=== PATIENT | male | born 1935 | race Caucasian/White ===

== ENCOUNTER 2019-10-02 21:33 | Observation (INO) | payer BC, MEDICARE, SELFPAY ==
[2019-10-02 21:49] VITALS: BP 92/70; PULSE 104; RESP 18; TEMP 36.7; O2SAT 95
--- NOTE | 2019-10-02 22:14 | ED.GENADUL_ITS ---
Discharge Plan Disposition Patient Disposition: [facility] INPATIENT Condition: Good Discharge Details Chief Complaint: Urinary Clinical Impression: Postoperative urinary retention, Obstructive uropathy, Acute kidney injury Admit Date/Time: 10/03/19 01:31 Admit Provider: Juan A Bryan Attending Provider: Juan A Bryan Primary Care Provider: Jason Muñoz ED Provider: Hasmukh Pate Hospital Course Hospital Course: 84 yo male with a h/o BPH, GERD, lumbar DJD, appx 2 weeks s/p L2-L5 laminectomy at [facility]. He had a jurado catheter placed in the shimon-operative period then removed at [facility] on 09/27. He was able to urinate post-jurado and was taking Flomax. He subsequently had had decreased urine output for the last several days. He also endorses constipation. He has been taking alesia/docusate and bisacodyl. After an enema on the day of admission he started having watery, brown stools. No F/C, SOA/cough, N/V/abd pain. Dr. Schroeder placed a jurado catheter on admission, with relief of urine. His creatinine is trending to normal. He is feeling well. Tolerating a diet. He is being discharged home. He will need to follow up with Dr. Schroeder in one week. Continue Tamsulosin at 0.8 mg daily. Repeat BMP in 3 days. Follow up with PCP as needed. Discharge Instructions Instructions: Constipation (DC), Acute Kidney Injury (DC), Urinary Retention in Men (GEN) Additional Instructions: Follow up with Dr. Schroeder in one week Take mirlax twice a day, Your tamsulosin dose has increased to 0.8 mg daily take every day Repeat lab work in 3 days Forms: Nursing Discharge Form Referrals: Laine Arceo DNP [NURSE PRACTITIONER] - 10/12/19 8:30 am Discharge Data Discharge Date/Time-TO BE ENTERED AT DEPARTURE: 10/03/19 02:10 Medical Decision Making <Lennie Almanza DO - Last Filed: 10/05/19 13:40> 2200 -- 84-year-old male who is 2 weeks status post lumbar laminectomy followed by Jurado catheter placement and removal 4 days ago presents for urinary retention worsening today. He also complains of constipation that was relieved today with enema now with diarrhea. BP mildly hypotensive. Heart rate 100s. He is afebrile and appears nontoxic. He has lower abdominal/suprapubic pressure. Normal exam. Normal sensation to perineum. No focal deficits. Differential diagnosis includes prerenal, renal or postrenal cause, UTI, mass. Will place an IV, bolus IV fluids, screening labs, CT abdomen and pelvis. Bladder scan approximately 1000mL. Will place a Jurado catheter. 2330 -- Labs reviewed and note a normal white blood cell count with significant abnormal renal function with a creatinine of 2.64 and GFR of 23. Nurse attempted to place Jurado catheter at bedside and it appeared to glide in easily but with no urine output. Concern for separate tract. 12am -- Case endorsed to Dr. Pate to follow-up on labs and imaging and with urology. Medical Records Medical records reviewed: Yes I reviewed the patient's medical records. Lab Data Lab results reviewed: Yes I reviewed the patient's lab results. <Hasmukh Pate, DO - Last Filed: 10/03/19 01:58> 84-year-old male who was signed out to me by my colleague Dr. Lennie Almanza. Please refer to her history and physical, documentation and assessment and plan. At time of signout we are pending evaluation by urology. CT scan results had returned and demonstrate evidence of notably dilated bladder at 1400 cc, markedly enlarged prostate at 8 cm, a 3 x 1.8 cm hypodense focus in the rightward seminal vesicle is nonspecific, hydronephrosis. We did contact Dr. Schroeder and discussed the case with him, he feels that the patient likely developed a secondary tract secondary to multiple catheterizations previously at [facility]. He has come in, and did place a Jurado catheter and the patient successfully got out 1600 cc of urine. Patient feels much better. Patient's laboratory work-up is reassuring with no white count, significant left shift or bandemia. Patient does have a notably elevated creatinine at 2.60, and review of labs from [facility] just 2 months ago demonstrated normal creatinine at that time. Likely secondary to obstructive uropathy. Pending urinalysis at this time, however urine on evaluation is otherwise clear but slightly dark. Due to the patient's age, and notable amount of urine that was exuded, I do feel that he would benefit from overnight admission for monitoring for signs of post obstructive diuresis. Additionally I do think with his age and comorbidities would be beneficial for his admission to make sure his creatinine improves. I did contact the hospitalist Dr. Bryan, and discussed the case with him. He agrees with the assessment and plan. I will place admission orders on his behalf for the patient. I have extensively reviewed the treatment plan with the patient. I have addressed all patient concerns at this time. I have also discussed the plan with the admitting physician and they agree with the current assessment and plan and have agreed to assume responsibility for the patient. All parties demonstrate verbal understanding and agreement with our assessment and plan at this time. Urinalysis is negative for evidence of infection. IMPRESSION: 1. Dilated urinary bladder, bladder volume 1460 mL, concerning for bladder outlet obstruction. 2. Markedly enlarged prostate measuring up to 8 cm, with elevation of the bladder floor. Correlate with PSA. 3. 3 x 1.8 cm hypodense focus in the rightward seminal vesicle is nonspecific in nature. This may represent cystic expansion related to obstruction of the ejaculatory ducts. Possibility of abscess is not excluded. Postcontrast CT may be helpful to exclude peripheral enhancement suggestive of abscess. 4. Large hiatal hernia. 5. Moderate bilateral hydronephrosis, left greater than right, likely representing postobstructive hydronephrosis. 6. There is air in the posterior urinary bladder wall and a small amount of air in the bladder lumen. This might relate to attempts at catheterization. There is no evidence of mason bladder perforation. Clinical correlation is recommended to exclude evidence of infection, to exclude emphysematous cystitis. 7. There is a urinary catheter in the distal penile urethra. The balloon is not inflated. 8. Nonobstructive right renal stones. No ureteral stones. 9. Additional incidental findings detailed above. Dictated and Authenticated by: Akin Albright MD. Ordering:DIANE Hogue MD HPI <Lennie Almanza DO - Last Filed: 10/05/19 13:40> General Mode of arrival: ambulatory . Date/Time Provider Initiated Documentation: 10/02/19 21:56 . Limitations to Documentation: no limitations . Information obtained by: patient . HPI Narrative: Patient is a an 84-year-old male who had lumbar laminectomy L2-L5 at [facility] within the last 2 weeks in which he had a Jurado catheter placed which he states was removed at [facility] on 09/27. He states he was able to urinate on his own after removal and has been taking Flomax. He states over the last few days he has had decreased urination as well as constipation. He did an enema today and has had multiple episodes of watery brown diarrhea since then. He states over the past 2 hours he has been unable to urinate at all and is having increased bladder pressure. He denies any fever, chest pain, shortness of breath, nausea or vomiting. Patient states it took [address] the catheter at [facility] and that they met resistance with bleeding before eventually being able to place a catheter. Related Data Home Medications Medication Instructions Recorded Confirmed bisacodyl 10 mg PO BID PRN 10/02/19 10/02/19 sennosides-docusate sodium [Stool 2 tab PO BID PRN 10/02/19 10/02/19 Softener-Laxative] polyethylene glycol 3350 17 g PO DAILY #30 ea 10/03/19 tamsulosin 0.8 mg PO DAILY #30 cap 10/03/19 Previous Rx's Medication Instructions Recorded polyethylene glycol 3350 17 g PO DAILY #30 ea 10/03/19 tamsulosin 0.8 mg PO DAILY #30 cap 10/03/19 Allergies Allergy/AdvReac Type Severity Reaction Status Date / Time codeine Allergy Mild Nausea Unverified 10/02/19 21:53 latex Allergy Mild Skin Rash Unverified 10/02/19 21:53 General Stated Complaint: Urinary GURU: 3 Review of Systems <Lennie Almanza DO - Last Filed: 10/05/19 13:40> All systems reviewed & are unremarkable except as noted in HPI and below Constitutional Constitutional: Reports as per HPI, Denies chills and Denies fever(s) Eyes Eyes: Denies blurry vision ENT Ears, Nose, Mouth, and Throat: Denies dizziness, Denies sore throat and Denies throat swelling Cardiovascular Cardiovascular: Denies chest pain and Denies dyspnea Respiratory Respiratory: Denies cough and Denies dyspnea Gastrointestinal Gastrointestinal: Reports abdominal pain, Reports constipation, Reports diarrhea and Denies vomiting Genitourinary Genitourinary: Denies hematuria, Reports oliguria, Reports difficulty urinating and Denies dysuria Musculoskeletal Musculoskeletal: Denies back pain and Denies numbness Integumentary/Breasts Skin/Breast: Denies lesions and Denies rash Neurologic Neurologic: Denies dizziness, Denies localized weakness and Denies numbness Allergic/Immunologic Allergic/Immunologic: Denies throat swelling PFSH <Lennie Almanza DO - Last Filed: 10/05/19 13:40> Medical History BPH (benign prostatic hyperplasia) (Chronic) GERD (gastroesophageal reflux disease) (Chronic) Postoperative urinary retention (Acute) Surgical History History of hernia repair (Chronic) History of laminectomy (Acute) History of tonsillectomy (Chronic) Social History Smoking/Tobacco Use Status: Never Alcohol Intake: never Drug use: Never Do you feel safe at home: Yes Do you feel safe in your relationship?: Yes Exam <Lennie Almanza DO - Last Filed: 10/05/19 13:40> Const General: cooperative and no acute distress HENMT Head: normal to inspection Face and sinus: normal facial exam Eyes General: appearance normal, both eyes and all related structures EOM: EOM intact bilaterally Neck Neck: normal visual inspection and No submandibular swelling Lymphatic: no lymphadenopathy noted Chest Chest: normal inspection of the chest and no tenderness Resp Effort & Inspection: normal respiratory effort and able to speak in complete sentences Auscultation: clear to auscultation bilaterally Cardio Rate: regular rate Rhythm: regular rhythm GI Inspection: normal to inspection Palpation: soft, not firm, not rigid and tender suprapubicly Auscultation: normal bowel sounds Male General Exam: Yes normal external exam Scrotum: scrotum normal Testes: normal Back/Spine/Pelvis Thoracic/Lumbar Spine: thoracic and lumbar spine normal to inspection Pelvis: no pain with anterior-posterior compression Skin General skin exam: no rashes or lesions noted Neuro General: patient alert, patient awake and patient oriented x3 Cognition: normal cognition Speech: speech normal Motor: muscle tone normal throughout Sensory Exam: no sensory deficits noted Extrem General: normal to inspection, full ROM, capillary refill normal, no calf tenderness bilaterally and no edema Psych Appearance: grossly normal Mental Status: mental status grossly normal Speech and Movement: speech and movement normal Affect: normal affect Course <Lennie Almanza DO - Last Filed: 10/05/19 13:40> Vital Signs Vital signs: Vital Signs Temperature 98.1 F 10/02/19 21:49 Pulse 104 H 10/02/19 21:49 Respiratory Rate 18 10/02/19 21:49 Blood Pressure 92/70 L 10/02/19 21:49 Pulse Oximetry 95 10/02/19 21:49 Temperature 98.1 F 10/02/19 21:49 Temperature Source Skin 10/02/19 21:49 Pulse 104 H 10/02/19 21:49 Respiratory Rate 18 10/02/19 21:49 Respiratory Effort Non-Labored 10/02/19 21:55 Blood Pressure 92/70 L 10/02/19 21:49 Blood Pressure Position Sitting 10/02/19 21:49 Pulse Oximetry 95 10/02/19 21:49 Oxygen Delivery Method Room Air 10/02/19 21:49 Oxygen Flow Rate 0 10/02/19 21:49 Pain Level 6 10/02/19 21:55 Sign Out <Lennie Almanza DO - Last Filed: 10/05/19 13:40> Sign Out Data: Sign Out Comment: Follow-up on labs, urinalysis, imaging and final disposition. Patient needs Jurado catheter placement. Last updated by Lennie Almanza DO at 10/02/19 23:28
[2019-10-02 22:36] LABS: Abs Immature Grans 0.02 10^3/uL (0.0-0.06); Absolute Basophil Count 0.03 10^3/uL (0.0-0.2); Absolute Eosinophil Count 0.16 10^3/uL (0.0-0.7); Absolute Lymphocyte Count 1.01 10^3/uL (1.2-3.4); Absolute Monocyte Count 1.34 10^3/uL (0.1-0.8); Basophils % 0.3; Eosinophils % 1.7; HCT 41.2 % (40.0-50.0); HGB 13.4 g/dL (13.5-17.5); Immature Grans % 0.2; Lymphocytes % 10.8; MCH 30.2 pg (27.0-33.0); MCHC 32.5 % (32.0-36.0); MPV 9.1 fL (8.0-11.0); Monocytes % 14.3; Neutrophils % 72.7; Nucleated RBC 0 %; Platelet Count 213 10^3/uL (130-400); RBC 4.43 10^6/uL (4.36-5.78); RDW 12.6 % (11.8-14.1); RDW-SD 43.2 fL; WBC 9.36 10^3/uL (4.4-10.8)
[2019-10-02 22:49] LABS: ALT 30 U/L (16-63); AST 33 U/L (15-37); Albumin 3.7 g/dL (3.4-5.0); Alkaline Phosphatase 77 U/L (46-116); Anion Gap 14.2 mmol/L (3-11); BUN 27 mg/dL (7-18); Bilirubin, Total 0.9 mg/dL (0.2-1.0); CO2 21.8 mmol/L (21.0-32.0); CREATININE 2.64 mg/dL (0.70-1.30); Calcium 9.9 mg/dL (8.5-10.1); Chloride 104 mmol/L (98-107); Estimated GFR 23.34 (mL/min/1.73m2); Glucose 120 mg/dL (74-106); Potassium 3.9 mmol/L (3.5-5.1); Sodium 140 mmol/L (136-145)
--- NOTE | 2019-10-02 23:45 | DI.CT_ITS ---
EXAM: CT ABDOMEN PELVIS WO CLINICAL HISTORY: constipation then diarrhea, urinary retention TECHNIQUE: COMPARISON: No exams were available for comparison FINDINGS: Noncontrast CT examination of the abdomen and pelvis was performed. Images obtained through the lung bases are unremarkable. There is a large hiatal hernia. Prior lumbar spine surgery noted with an a pparent laminectomy. Numerous osseous chips noted at the surgical site. Correlate with any symptoma tology referable to this area. There are multiple hepatic and splenic calcifications consistent with healed granulomatous disease. Nonspecific multiple tiny low-attenuation hepatic lesions noted, these may represent cysts or hemangi anne, no prior studies available for comparison, these are too small to characterize accurately. There is a mass of left renal cyst with wall calcification. There is moderate left hydronephrosis an d right hydronephrosis. There are nonobstructing right renal calculi. No ureteral calcification see n. There is massive distention of the urinary bladder, there is gas in the bladder lumen, catheter noted in penile urethra. Posterior urinary bladder wall gas noted, emphysematous cystitis not excluded. Marked heterogeneous enlargement of the prostate noted. No gross abdominal or pelvic adenopathy. Fat containing left inguinal hernia noted. Appendix is not specifically identified but there is no evidence of appendicitis or diverticulitis. No evidence of bowel obstruction. Abdominal aorta is of normal diameter. IMPRESSION: Bilateral hydronephrosis with massive urinary bladder distension, consistent with bladder outlet obst ruction. Gas noted in urinary bladder wall, emphysematous cystitis not excluded, please correlate cl inically. RADIATION DOSE DELIVERED: 1,162.29mGy.cm Total DLP
--- NOTE | 2019-10-03 00:17 | DI.VRAD_ITS ---
PROCEDURE INFORMATION: Exam: CT Abdomen And Pelvis Without Contrast Exam date and time: 10/02/2019 10:58 PM Age: 84 years old Clinical indication: Generalized; Patient HX: Abdominal pain, unable to urinate, TECHNIQUE: Imaging protocol: Computed tomography of the abdomen and pelvis without contrast. Radiation optimization: All CT scans at this facility use at least one of these dose optimization techniques: automated exposure control; mA and/or kV adjustment per patient size (includes targeted exams where dose is matched to clinical indication); or iterative reconstruction. COMPARISON: No relevant prior studies available. FINDINGS: Lungs: Patchy scarring or atelectasis in the lung bases. Heart: Heart size normal. Mediastinal space: Large hiatal hernia. This contains the majority of the stomach, with no gross signs of obstruction. Liver: Normal size and contour. Well-circumscribed low-density lesions in the right hepatic lobe measuring 6 mm, 6 mm, and 7 mm , demonstrating benign CT features consistent with hepatic cysts. No further imaging characterization/followup is required based on current consensus criteria. No intrahepatic biliary ductal dilatation. Granulomatous calcifications in the liver. Gallbladder and bile ducts: Normal. No calcified stones. No ductal dilation. Pancreas: Mild pancreatic atrophy without acute abnormality. No pancreatic ductal dilatation. Spleen: Granulomatous calcifications in the spleen without acute splenic abnormality. Adrenals: Normal. No adrenal mass. Kidneys and ureters: Mild bilateral hydronephrosis. No obstructive ureteral stones or mass lesions are identified, favoring that this represents postobstructive hydronephrosis related to bladder overdistention. There are 2 small nonobstructive stones in the right kidney measuring 3 mm and 4 mm. 15 cm left renal cortical cyst with some thin rim calcification medially. There are also a few small subcentimeter probable cortical cysts in the right kidney. No further imaging evaluation is required. Stomach and bowel: The small bowel is normal with no evidence of obstruction. Moderate colonic diverticulosis distributed throughout the colon without focal changes to suggest diverticulitis. Appendix: The appendix is normal in caliber and demonstrates no evidence of appendicitis. Intraperitoneal space: No free fluid or air. Vasculature: Mild atherosclerotic aortoiliac calcification without aneurysm. Lymph nodes: No adenopathy. Bladder: Dilated urinary bladder, bladder volume 1460 mL. Given the markedly enlarged prostate is is suggestive of bladder outlet obstruction. There is a small amount of air in the urinary bladder which may relate to recent catheterization. There is no bladder wall thickening or adjacent stranding to suggest cystitis. Small amounts of air are present in the posterior bladder wall. Etiology is uncertain. Correlate with UA to exclude evidence of emphysematous cystitis. Reproductive: Markedly enlarged prostate partially elevating the bladder floor and measuring 8 cm transverse by 7 cm AP by approximately 5.2 cm craniocaudal. Correlate with PSA to exclude evidence of prostate carcinoma. 3 x 1.8 cm hypodense rounded focus in the right seminal vesicle measuring 5 Hounsfield units in density, possibly a cyst. Abscess could produce this appearance, consider postcontrast CT assessment as clinically indicated. There is a catheter in the penile urethra. The balloon is not inflated. Bones/joints: No acute osseous abnormalities. Prior laminectomy T12-L5. Osteopenia. Soft tissues: Small fatty left inguinal hernia with no asociated bowel herniation or bowel obstruction. IMPRESSION: 1. Dilated urinary bladder, bladder volume 1460 mL, concerning for bladder outlet obstruction. 2. Markedly enlarged prostate measuring up to 8 cm, with elevation of the bladder floor. Correlate with PSA. 3. 3 x 1.8 cm hypodense focus in the rightward seminal vesicle is nonspecific in nature. This may represent cystic expansion related to obstruction of the ejaculatory ducts. Possibility of abscess is not excluded. Postcontrast CT may be helpful to exclude peripheral enhancement suggestive of abscess. 4. Large hiatal hernia. 5. Moderate bilateral hydronephrosis, left greater than right, likely representing postobstructive hydronephrosis. 6. There is air in the posterior urinary bladder wall and a small amount of air in the bladder lumen. This might relate to attempts at catheterization. There is no evidence of mason bladder perforation. Clinical correlation is recommended to exclude evidence of infection, to exclude emphysematous cystitis. 7. There is a urinary catheter in the distal penile urethra. The balloon is not inflated. 8. Nonobstructive right renal stones. No ureteral stones. 9. Additional incidental findings detailed above. Dictated and Authenticated by: Akin Albright MD. Ordering:DIANE Hogue MD
[2019-10-03] MEDS: ACETAMINOPHEN 1,000 MG/100 ML BTL 400 MG IVPB (00:40)
[2019-10-03] MEDS: Normal Saline 500 ML IV (00:55)
--- NOTE | 2019-10-03 01:24 | W.UROLOGYCON ---
Date of service: 10/03/19 Time of Service: 01:24 Assessment and Plan Assessment and plan (1) Postoperative urinary retention: Status: Acute Assessment and plan: I would maximize his dose of Flomax to 0.8 mg daily. We will plan on leaving his catheter in place for a minimum of a week. We may leave the catheter for longer if he has persistent constipation or difficulty ambulating. I would expect that his serum creatinine will improve rather quickly now that his bladder has been drained. History of Present Illness History of Present Illness Chief Complaint: Urinary retention Narrative: This is an 84-year-old gentleman who underwent back surgery at [facility] about 2 weeks ago. He apparently developed urinary retention while he was hospitalized. He recalls that a urology resident and attending needed to use a wire to pass a catheter during this hospitalization. He was started on Flomax 0.4 mg daily. The catheter was removed 5 days ago. He had a slow stream but was able to void until this evening when he became distended and uncomfortable. When he presented to the emergency room, his serum creatinine was elevated. The staff was unable to pass a catheter into his bladder, and I was called to help with bladder drainage. The point of obstruction seems to be at the bladder neck. The patient tells me he has been constipated in the postoperative period and required an enema just this morning. He has been able to ambulate since the procedure. [facility] Medical History BPH (benign prostatic hyperplasia) (Chronic) GERD (gastroesophageal reflux disease) (Chronic) Postoperative urinary retention (Acute) Surgical History History of hernia repair (Chronic) History of laminectomy (Acute) History of tonsillectomy (Chronic) Social History Smoking/Tobacco Use Status: Never Alcohol Intake: never Drug use: Never Do you feel safe at home: Yes Do you feel safe in your relationship?: Yes Exam Narrative Exam Narrative: The patient was seen at the bedside. He is relatively comfortable after having been medicated. His vital signs are documented elsewhere His bladder is distended. He is awake and alert His genitalia was prepped. 2% Xylocaine jelly was instilled into the urethra to act as a local anesthetic. A 20 Tamazight coud? tipped catheter was passed through the urethra into the bladder. Clear urine was obtained. The catheter balloon was inflated with 10 cc of sterile water and hooked to gravity drainage. Approximately 1700 cc clear urine was obtained. Results Last Vital Signs Temp 36.7 C 10/02/19 21:49 Pulse 104 H 10/02/19 21:49 Resp 18 10/02/19 21:49 BP 92/70 L 10/02/19 21:49 Pulse Ox 95 10/02/19 21:49 Labs Result diagrams: 10/02/19 22:28 10/02/19 22:28 Labs: Laboratory Results - last 24 hr 10/02/19 10/02/19 22:28 22:28 WBC 9.36 RBC 4.43 Hgb 13.4 L Hct 41.2 MCV 93.0 MCH 30.2 MCHC 32.5 RDW 12.6 Plt Count 213 MPV 9.1 Immature Gran % 0.2 Neutrophils % 72.7 Lymphocytes % 10.8 Monocytes % 14.3 Eosinophils % 1.7 Basophils % 0.3 Nucleated RBC % 0 Absolute Neutrophils 6.80 H Absolute Lymphocytes 1.01 L Absolute Monocytes 1.34 H Absolute Eosinophils 0.16 Absolute Basophils 0.03 Sodium 140 Potassium 3.9 Chloride 104 Carbon Dioxide 21.8 Anion Gap 14.2 H BUN 27 H Creatinine 2.64 H Estimated GFR/1.73 m2 23.34 Glucose 120 H Calcium 9.9 Total Bilirubin 0.9 AST 33 ALT 30 Alkaline Phosphatase 77 Total Protein 7.0 Albumin 3.7
[2019-10-03 01:37] VITALS: BP 130/74; PULSE 87; RESP 16; TEMP 37.1; O2SAT 96
--- NOTE | 2019-10-03 01:38 | NUR.NOTE ---
MD Schroeder in to eval pt and place 20fr coude cath. Approx 1400 straw colored urine out. Pt maura well. [place] to mid back intact, no redness, swelling or drainage. Pt denies back pain, abd pain. plan for admission overnight. Pt aware.
[2019-10-03 01:43] LABS: Bilirubin Negative (Negative); Blood Moderate (Negative); Clarity Clear (Clear); Glucose Negative (Negative); Ketones Negative (Negative); Leukocyte Esterase Negative (Negative); Nitrite Negative (Negative); Urobilinogen 0.2 EU/dL (Up TO 0.2); pH 5.5 (5-8)
[2019-10-03 01:51] LABS: Bacteria Negative HPF (Negative); Crystals Negative HPF (Negative); Epithelial Cells Rare HPF (Negative); Mucus Negative (Negative); Other Cells Few Yeast (Negative); RBC 20-50 HPF (0-2); WBC 0-2 HPF (0-5)
[2019-10-03 01:52] LABS: C & S Indicated? Yes; Casts Negative LPF (Negative)
[2019-10-03 02:29] VITALS: BP 114/68; PULSE 80; RESP 18; TEMP 37; O2SAT 97
[2019-10-03 03:40] VITALS: BP 102/61; PULSE 78; RESP 17; TEMP 36.5; O2SAT 97
--- NOTE | 2019-10-03 06:10 | W.PM.HP.N ---
Date of service: 10/03/19 Time of Service: 06:10 Assessment and Plan Assessment and plan (1) Obstructive uropathy: Status: Acute Assessment and plan: Jurado catheter placed by Urology, Dr Schroeder. Advised to leave for at least one week and to f/u with Urology. Significant BPH. (2) Acute kidney injury: Status: Acute Assessment and plan: Related to obstruction and possibly some hypovolemia. He was given a 500ml NS bolus in the ED Repeat creatinine this AM. (3) History of lumbar laminectomy: Status: Acute Assessment and plan: No pain meds on APR Acetaminophen prn. History of Present Illness History of Present Illness Chief Complaint: urinary retention Narrative: This is an 84 yo male with a h/o BPH, GERD, lumbar DJD, appx 2 weeks s/p L2-L5 laminectomy at [facility]. He has a jurado catheter placed in the shimon-operative period then removed at [facility] on 09/27. He was able to urinate post-jurado and was taking Flomax. He has subsequently had decrease urine output for the last several days. He also endorses constipation. He has been taking alesia/docusate and bisacodyl. After an enema on the day of admission he started having watery, brown stools. No F/C, SOA/cough, N/V/abd pain. Urology, Dr Schroeder, was consulted and placed a jurado catheter while in the ED. The patient has a false urethral tract that made the jurado difficult to place initially at [facility] and again in the ED. Dr. Schroeder placed a jurado successfully. Bladder volume was 1460ml on CT abd/pelvis. He was also noted to have an enlarged prostate measuring 8 cm with elevation of the bladder floor. His creatinine was elevated at 2.64. He was admitted observation of his renal function. IV fluids 500ml bolus given. Review of Systems Narrative: Pt sleeping. All systems reviewed & are unremarkable except as noted in HPI and below PFSH Medical History BPH (benign prostatic hyperplasia) (Chronic) GERD (gastroesophageal reflux disease) (Chronic) Postoperative urinary retention (Acute) Surgical History History of hernia repair (Chronic) History of laminectomy (Acute) History of tonsillectomy (Chronic) Social History Smoking/Tobacco Use Status: Never Alcohol Intake: never Drug use: Never Do you feel safe at home: Yes Do you feel safe in your relationship?: Yes Meds Home Medications and Allergies Home Medications Medication Instructions Recorded Confirmed Type tamsulosin [Flomax] 0.4 mg PO DAILY #10 cap.er.[id number] 11/21/14 10/02/19 Rx bisacodyl 10 mg PO BID PRN 10/02/19 10/02/19 History sennosides-docusate sodium [Stool 2 tab PO BID PRN 10/02/19 10/02/19 History Softener-Laxative] Allergies Allergy/AdvReac Type Severity Reaction Status Date / Time codeine Allergy Mild Nausea Unverified 10/02/19 21:53 latex Allergy Mild Skin Rash Unverified 10/02/19 21:53 Exam Const General: cooperative and no acute distress Nutritional Appearance: overweight Resp Effort & Inspection: normal respiratory effort Auscultation: clear to auscultation bilaterally Cardio Rate: regular rate Rhythm: regular rhythm Heart Sounds: S1 normal and S2 normal GI Palpation: soft Percussion: normal to percussion Auscultation: normal bowel sounds Extrem General: normal to inspection and no clubbing, cyanosis or edema Results Labs Result diagrams: 10/02/19 22:28 10/02/19 22:28 Labs: Laboratory Results - last 24 hr 10/02/19 10/02/19 10/02/19 01:20 22:28 22:28 WBC 9.36 RBC 4.43 Hgb 13.4 L Hct 41.2 MCV 93.0 MCH 30.2 MCHC 32.5 RDW 12.6 Plt Count 213 MPV 9.1 Immature Gran % 0.2 Neutrophils % 72.7 Lymphocytes % 10.8 Monocytes % 14.3 Eosinophils % 1.7 Basophils % 0.3 Nucleated RBC % 0 Absolute Neutrophils 6.80 H Absolute Lymphocytes 1.01 L Absolute Monocytes 1.34 H Absolute Eosinophils 0.16 Absolute Basophils 0.03 Sodium 140 Potassium 3.9 Chloride 104 Carbon Dioxide 21.8 Anion Gap 14.2 H BUN 27 H Creatinine 2.64 H Estimated GFR/1.73 m2 23.34 Glucose 120 H Calcium 9.9 Total Bilirubin 0.9 AST 33 ALT 30 Alkaline Phosphatase 77 Total Protein 7.0 Albumin 3.7 Urine Color Yellow Urine Clarity Clear Urine pH 5.5 Ur Specific [place] 1.020 Urine Protein Negative Urine Ketones Negative Urine Blood Moderate H Urine Nitrite Negative Urine Bilirubin Negative Urine Urobilinogen 0.2 Ur Leukocyte Esterase Negative Urine RBC 20-50 H Urine WBC 0-2 Ur Epithelial Cells Rare Urine Crystals Negative Urine Bacteria Negative Urine Casts Negative Urine Mucus Negative Urine Other Few yeast Ur Culture Indicated? Yes Urine Glucose Negative Last Vital Signs Temp 37 C 10/03/19 02:29 Pulse 80 10/03/19 02:29 Resp 18 10/03/19 02:29 BP 114/68 10/03/19 02:29 Pulse Ox 97 10/03/19 02:29 COVID-19 Screening Have you,or household,traveled outside [place] in last 14 days?: No Had IN PERSON contact w/suspected or confirmed C-19 person: No
--- NOTE | 2019-10-03 07:41 | PGE_ITS ---
Date of Service Date of service: 10/03/19 Time of Service: 07:41 Assessment and Plan Assessment and plan (1) Postoperative urinary retention: Status: Acute (2) Obstructive uropathy: Status: Acute Assessment and plan: As long as his serum creatinine is responding appropriately, I have no objection to his being discharged with the catheter in place. I would ask him to continue the higher dose of tamsulosin (0.8 mg daily). As long as his constipation has been rectified, we can see him in the office as early as 1 week from now or as late as 30 days from now. We will give him a voiding trial at that time. Subjective Subjective Interval history since last seen: The patient is sleeping and I did not awaken him Exam Narrative Exam Narrative: The urine in his catheter bag remains clear His labs are pending Objective Objective Clinical Data: Abnormal lab results 10/02/19 10/02/19 10/02/19 Range/Units 01:20 22:28 22:28 Hgb 13.4 L (13.5-17.5) g/dL Absolute Neutrophils 6.80 H (1.2-6.7) 10^3/uL Absolute Lymphocytes 1.01 L (1.2-3.4) 10^3/uL Absolute Monocytes 1.34 H (0.1-0.8) 10^3/uL Anion Gap 14.2 H (3-11) mmol/L BUN 27 H (7-18) mg/dL Creatinine 2.64 H (0.70-1.30) mg/dL Glucose 120 H (74-106) mg/dL Urine Blood Moderate H (Negative) Urine RBC 20-50 H (0-2) HPF Vital Signs Temperature 36.5 C 10/03/19 03:40 Temperature Source Tympanic 10/03/19 03:40 Pulse 78 10/03/19 03:40 Pulse Rhythm Regular 10/03/19 02:29 Respiratory Rate 17 10/03/19 03:40 Respiratory Effort 10/03/19 02:29 Respiratory Depth Normal 10/03/19 02:29 Blood Pressure 102/61 10/03/19 03:40 Blood Pressure Position Sitting 10/02/19 21:49 Pulse Oximetry 97 10/03/19 03:40 Oxygen Delivery Method Room Air 10/03/19 03:40 Oxygen Flow Rate 0 10/03/19 03:40 Pain Level 0 10/03/19 02:29 Intake & Output 10/02/19 10/02/19 10/03/19 11:59 23:59 11:59 Intake Total 100 / 100 Output Total 1400 / 1400 Balance -1300 / -1300 Weight 91.626 kg 91.626 kg Intake: IV 100 / 100 Output: Urine 1400 / 1400 Other: Urine Color Straw Urine Appearance Sediment Laboratory Results WBC 9.36 10^3/uL (4.4-10.8) 10/02/19 22: RBC 4.43 10^6/uL (4.36-5.78) 10/02/19 22:28 Hgb 13.4 g/dL (13.5-17.5) L 10/02/19 22: Hct 41.2 % (40.0-50.0) 10/02/19 22: MCV 93.0 fL (80-95) 10/02/19 22: MCH 30.2 pg (27.0-33.0) 10/02/19 22: MCHC 32.5 % (32.0-36.0) 10/02/19 22: RDW 12.6 % (11.8-14.1) 10/02/19 22: Plt Count 213 10^3/uL (130-400) 10/02/19 22:28 MPV 9.1 fL (8.0-11.0) 10/02/19 22: Immature Gran % 0.2 10/02/19 22:28 Neutrophils % 72.7 10/02/19 22:28 Lymphocytes % 10.8 10/02/19 22:28 Monocytes % 14.3 10/02/19 22:28 Eosinophils % 1.7 10/02/19 22:28 Basophils % 0.3 10/02/19 22:28 Nucleated RBC % 0 % 10/02/19 22:28 Absolute Neutrophils 6.80 10^3/uL (1.2-6.7) H 10/02/19 22: Absolute Lymphocytes 1.01 10^3/uL (1.2-3.4) L 10/02/19 22: Absolute Monocytes 1.34 10^3/uL (0.1-0.8) H 10/02/19 22: Absolute Eosinophils 0.16 10^3/uL (0.0-0.7) 10/02/19 22:28 Absolute Basophils 0.03 10^3/uL (0.0-0.2) 10/02/19 22:28 Sodium 140 mmol/L (136-145) 10/02/19 22:28 Potassium 3.9 mmol/L (3.5-5.1) 10/02/19 22: Chloride 104 mmol/L (98-107) 10/02/19 22:28 Carbon Dioxide 21.8 mmol/L (21.0-32.0) 10/02/19 22:28 Anion Gap 14.2 mmol/L (3-11) H 10/02/19 22:28 BUN 27 mg/dL (7-18) H 10/02/19 22: Creatinine 2.64 mg/dL (0.70-1.30) H 10/02/19 22:28 Estimated GFR/1.73 m2 23.34 (mL/min/1.73m2) 10/02/19 22: Glucose 120 mg/dL (74-106) H 10/02/19 22:28 Calcium 9.9 mg/dL (8.5-10.1) 10/02/19 22:28 Total Bilirubin 0.9 mg/dL (0.2-1.0) 10/02/19 22:28 AST 33 U/L (15-37) 10/02/19 22:28 ALT 30 U/L (16-63) 10/02/19 22:28 Alkaline Phosphatase 77 U/L (46-116) 10/02/19 22:28 Total Protein 7.0 g/dL (6.4-8.2) 10/02/19 22:28 Albumin 3.7 g/dL (3.4-5.0) 10/02/19 22:28 Urine Color Yellow (Yellow) 10/02/19 01:20 Urine Clarity Clear (Clear) 10/02/19 01:20 Urine pH 5.5 (5-8) 10/02/19 01:20 Ur Specific [place] 1.020 (1.005-1.025) 10/02/19 01:20 Urine Protein Negative mg/dL (Negative) 10/02/19 01:20 Urine Ketones Negative mg/dL (Negative) 10/02/19 01:20 Urine Blood Moderate (Negative) H 10/02/19 01:20 Urine Nitrite Negative (Negative) 10/02/19 01:20 Urine Bilirubin Negative (Negative) 10/02/19 01:20 Urine Urobilinogen 0.2 EU/dL (Up TO 0.2) 10/02/19 01:20 Ur Leukocyte Esterase Negative (Negative) 10/02/19 01:20 Urine RBC 20-50 HPF (0-2) H 10/02/19 01:20 Urine WBC 0-2 HPF (0-5) 10/02/19 01:20 Ur Epithelial Cells Rare HPF (Negative) 10/02/19 01:20 Urine Crystals Negative HPF (Negative) 10/02/19 01:20 Urine Bacteria Negative HPF (Negative) 10/02/19 01:20 Urine Casts Negative LPF (Negative) 10/02/19 01:20 Urine Mucus Negative (Negative) 10/02/19 01:20 Urine Other Few yeast (Negative) 10/02/19 01:20 Ur Culture Indicated? Yes 10/02/19 01:20 Urine Glucose Negative mg/dL (Negative) 10/02/19 01:20
[2019-10-03 08:07] LABS: Anion Gap 7.5 mmol/L (3-11); BUN 27 mg/dL (7-18); CO2 25.5 mmol/L (21.0-32.0); CREATININE 1.98 mg/dL (0.70-1.30); Calcium 9.1 mg/dL (8.5-10.1); Chloride 110 mmol/L (98-107); Estimated GFR 32.52 (mL/min/1.73m2); Glucose 96 mg/dL (74-106); Potassium 4.1 mmol/L (3.5-5.1); Sodium 143 mmol/L (136-145)
[2019-10-03] MEDS: Polyethylene Glycol 3350 17 GM PACKET PO (08:14)
[2019-10-03] MEDS: Tamsulosin 0.4 MG CAPCR 0.8 MG PO (08:14)
[2019-10-03 08:35] VITALS: BP 106/64; PULSE 83; RESP 19; TEMP 36.3; O2SAT 95
[2019-10-03] MEDS: Acetaminophen 325 MG TAB 650 MG PO (12:20)
[2019-10-03 14:11] LABS: COVID-19 RT-PCR UVMMC Result Negative (Negative)
[2019-10-03 14:14] LABS: Anion Gap 4.7 mmol/L (3-11); BUN 27 mg/dL (7-18); CO2 26.3 mmol/L (21.0-32.0); CREATININE 1.54 mg/dL (0.70-1.30); Calcium 9.1 mg/dL (8.5-10.1); Chloride 109 mmol/L (98-107); Estimated GFR 43.47 (mL/min/1.73m2); Glucose 105 mg/dL (74-106); Sodium 140 mmol/L (136-145)
--- NOTE | 2019-10-03 14:44 | W.PM.DS.N ---
Date of service: 10/03/19 Time of Service: 14:44 DS: Diagnosis Discharge Diagnosis (1) Postoperative urinary retention: Start date: 10/03/19 Start time: 14:44 Status: Acute Asessment and Plan: Secondary to post laminectomy procedure done at [facility]. Jurado catheter placed by Dr. Schroeder. Follow up with urology in 1 week. Leave jurado in place. Creatinine trending down. Will recheck in 3 days Take 0.8 mg daily of tamsulosin (2) Obstructive uropathy: Start date: 10/03/19 Start time: 14:45 Status: Acute Asessment and Plan: From above. Above case discussed with Dr. Houston who is in agreement. Discharge Plan Disposition Patient Disposition: HOME Condition: Good Discharge Details Chief Complaint: Urinary Clinical Impression: Postoperative urinary retention, Obstructive uropathy, Acute kidney injury Reason For Visit: ACUTE KIDNEY INJURY Admit Date/Time: 10/03/19 01:31 Admit Provider: Juan A Bryan Attending Provider: Juan A Bryan Primary Care Provider: Jason Muñoz ED Provider: Hasmukh Pate Hospital Course Hospital Course: 84 yo male with a h/o BPH, GERD, lumbar DJD, appx 2 weeks s/p L2-L5 laminectomy at [facility]. He had a jurado catheter placed in the shimon-operative period then removed at [facility] on 09/27. He was able to urinate post-jurado and was taking Flomax. He subsequently had had decreased urine output for the last several days. He also endorses constipation. He has been taking alesia/docusate and bisacodyl. After an enema on the day of admission he started having watery, brown stools. No F/C, SOA/cough, N/V/abd pain. Dr. Schroeder placed a jurado catheter on admission, with relief of urine. His creatinine is trending to normal. He is feeling well. Tolerating a diet. He is being discharged home. He will need to follow up with Dr. Schroeder in one week. Continue Tamsulosin at 0.8 mg daily. Repeat BMP in 3 days. Follow up with PCP as needed. Home Meds and New Rx's Prescriptions: New polyethylene glycol 3350 17 gram Powder In Packet 17 g PO DAILY Qty: 30 RF: 0 tamsulosin 0.4 mg Capsule 0.8 mg PO DAILY Qty: 30 RF: 0 Continued sennosides-docusate sodium [Stool Softener-Laxative] 8.6-50 mg Tablet 2 tab PO BID PRNRF: 0 bisacodyl 5 mg Tablet 10 mg PO BID PRNRF: 0 Discontinued tamsulosin [Flomax] 0.4 MG capsule 0.4 mg PO DAILY Qty: 10 RF: 0 Discharge Instructions Instructions: Constipation (DC), Acute Kidney Injury (DC), Urinary Retention in Men (GEN) Additional Instructions: Follow up with Dr. Schroeder in one week Take mirlax twice a day, Your tamsulosin dose has increased to 0.8 mg daily take every day Repeat lab work in 3 days Referrals: Cameron Schroeder MD [ [facility] STAFF PHYSICIAN] - (Follow up one week for urinary retention) Activity:: Activity as Tolerated Equipment/Supplies:: No Equipment Needed Diet:: As Tolerated Discharge Orders Discharge Orders: Discharge Order (Routine); Ordered 10/03/19 Ordered By: Chantal Nicholson DS: Summary Status at Discharge Functional status at discharge: independent ambulation Overall status at discharge: patient is back to baseline Mental Status: mental status grossly normal Speech and Movement: speech and movement normal Mood: congruent mood Affect: normal affect Exam Const General: cooperative and no acute distress Nutritional Appearance: overweight Resp Effort & Inspection: normal respiratory effort Auscultation: clear to auscultation bilaterally Cardio Rate: regular rate Rhythm: regular rhythm Heart Sounds: S1 normal and S2 normal GI Palpation: soft Percussion: normal to percussion Auscultation: normal bowel sounds Extrem General: normal to inspection and no clubbing, cyanosis or edema Psych Mental Status: mental status grossly normal Speech and Movement: speech and movement normal Mood: congruent mood Affect: normal affect DS: Data Vitals/I&O Vitals and I&O: Vital Signs Temperature 36.3 C L 10/03/19 08:35 Temperature Source Tympanic 10/03/19 08:35 Pulse 83 10/03/19 08:35 Pulse Rhythm Regular 10/03/19 10:22 Respiratory Rate 19 10/03/19 08:35 Respiratory Effort Non-Labored 10/03/19 10:22 Respiratory Depth Normal 08/25/20 10:22 Respiratory Pattern Normal 10/03/19 10:22 Blood Pressure 106/64 10/03/19 08:35 Blood Pressure Position Sitting 10/02/19 21:49 Pulse Oximetry 95 10/03/19 08:35 Oxygen Delivery Method Room Air 10/03/19 08:35 Oxygen Flow Rate 0 10/03/19 08:35 Pain Level 0 10/03/19 08:35 Intake & Output 10/02/19 10/03/19 10/03/19 23:59 11:59 23:59 Intake Total 700 / 1200 500 / 1200 Output Total 2024 Balance -1325 / -825 500 / -825 Weight 91.626 kg 90.1 kg Intake: IV 100 / 600 500 / 600 Oral 600 / 600 Output: Urine 2024 Other: Urine Color Light [place] Urine Appearance Clear Data Completed and Pending Completed studies during hospitalization [Text1]: Noncontrast CT examination of the abdomen and pelvis was performed. Images obtained through the lung bases are unremarkable. There is a large hiatal hernia. Prior lumbar spine surgery noted with an apparent laminectomy. Numerous osseous chips noted at the surgical site. Correlate with any symptomatology referable to this area. There are multiple hepatic and splenic calcifications consistent with healed granulomatous disease. Nonspecific multiple tiny low-attenuation hepatic lesions noted, these may represent cysts or hemangioma, no prior studies available for comparison, these are too small to characterize accurately. There is a mass of left renal cyst with wall calcification. There is moderate left hydronephrosis and right hydronephrosis. There are nonobstructing right renal calculi. No ureteral calcification seen. There is massive distention of the urinary bladder, there is gas in the bladder lumen, catheter noted in penile urethra. Posterior urinary bladder wall gas noted, emphysematous cystitis not excluded. Marked heterogeneous enlargement of the prostate noted. No gross abdominal or pelvic adenopathy. Fat containing left inguinal hernia noted. Appendix is not specifically identified but there is no evidence of appendicitis or diverticulitis. No evidence of bowel obstruction. Abdominal aorta is of normal diameter. IMPRESSION: Bilateral hydronephrosis with massive urinary bladder distension, consistent with bladder outlet obstruction. Gas noted in urinary bladder wall, emphysematous cystitis not excluded, please correlate clinically. IMPRESSION: 1. Dilated urinary bladder, bladder volume 1460 mL, concerning for bladder outlet obstruction. 2. Markedly enlarged prostate measuring up to 8 cm, with elevation of the bladder floor. Correlate with PSA. 3. 3 x 1.8 cm hypodense focus in the rightward seminal vesicle is nonspecific in nature. This may represent cystic expansion related to obstruction of the ejaculatory ducts. Possibility of abscess is not excluded. Postcontrast CT may be helpful to exclude peripheral enhancement suggestive of abscess. 4. Large hiatal hernia. 5. Moderate bilateral hydronephrosis, left greater than right, likely representing postobstructive hydronephrosis. 6. There is air in the posterior urinary bladder wall and a small amount of air in the bladder lumen. This might relate to attempts at catheterization. There is no evidence of mason bladder perforation. Clinical correlation is recommended to exclude evidence of infection, to exclude emphysematous cystitis. 7. There is a urinary catheter in the distal penile urethra. The balloon is not inflated. 8. Nonobstructive right renal stones. No ureteral stones. 9. Additional incidental findings detailed above. Labs on day of discharge: Labs from last 24 hours 10/03/19 10/03/19 10/03/19 13:55 06:35 01:55 WBC RBC Hgb Hct MCV MCH MCHC RDW Plt Count MPV Immature Gran % Neutrophils % Lymphocytes % Monocytes % Eosinophils % Basophils % Nucleated RBC % Absolute Neutrophils Absolute Lymphocytes Absolute Monocytes Absolute Eosinophils Absolute Basophils Sodium 140 143 Potassium 4.0 4.1 Chloride 109 H 110 H Carbon Dioxide 26.3 25.5 Anion Gap 4.7 7.5 BUN 27 H 27 H Creatinine 1.54 H 1.98 H Estimated GFR/1.73 m2 43.47 32.52 Glucose 105 96 Calcium 9.1 9.1 Total Bilirubin AST ALT Alkaline Phosphatase Total Protein Albumin Urine Color Urine Clarity Urine pH Ur Specific [place] Urine Protein Urine Ketones Urine Blood Urine Nitrite Urine Bilirubin Urine Urobilinogen Ur Leukocyte Esterase Urine RBC Urine WBC Ur Epithelial Cells Urine Crystals Urine Bacteria Urine Casts Urine Mucus Urine Other Ur Culture Indicated? Urine Glucose COVID-19 PCR Negative Nasopharyn COVID-19 PCR Not Applicable Ref Test Perform Site [facility] lab 10/02/19 10/02/19 10/02/19 22:28 22:28 01:20 WBC 9.36 RBC 4.43 Hgb 13.4 L Hct 41.2 MCV 93.0 MCH 30.2 MCHC 32.5 RDW 12.6 Plt Count 213 MPV 9.1 Immature Gran % 0.2 Neutrophils % 72.7 Lymphocytes % 10.8 Monocytes % 14.3 Eosinophils % 1.7 Basophils % 0.3 Nucleated RBC % 0 Absolute Neutrophils 6.80 H Absolute Lymphocytes 1.01 L Absolute Monocytes 1.34 H Absolute Eosinophils 0.16 Absolute Basophils 0.03 Sodium 140 Potassium 3.9 Chloride 104 Carbon Dioxide 21.8 Anion Gap 14.2 H BUN 27 H Creatinine 2.64 H Estimated GFR/1.73 m2 23.34 Glucose 120 H Calcium 9.9 Total Bilirubin 0.9 AST 33 ALT 30 Alkaline Phosphatase 77 Total Protein 7.0 Albumin 3.7 Urine Color Yellow Urine Clarity Clear Urine pH 5.5 Ur Specific [place] 1.020 Urine Protein Negative Urine Ketones Negative Urine Blood Moderate H Urine Nitrite Negative Urine Bilirubin Negative Urine Urobilinogen 0.2 Ur Leukocyte Esterase Negative Urine RBC 20-50 H Urine WBC 0-2 Ur Epithelial Cells Rare Urine Crystals Negative Urine Bacteria Negative Urine Casts Negative Urine Mucus Negative Urine Other Few yeast Ur Culture Indicated? Yes Urine Glucose Negative COVID-19 PCR Nasopharyn COVID-19 PCR Ref Test Perform Site 10/02/19 01:20 Urine - Reflex from Urine Culture - Pending Preliminary micro results at discharge 10/02/19 01:20 Urine Culture - Pending Urine - Reflex from [facility] Medical History BPH (benign prostatic hyperplasia) (Chronic) GERD (gastroesophageal reflux disease) (Chronic) Postoperative urinary retention (Acute) Surgical History History of hernia repair (Chronic) History of laminectomy (Acute) History of tonsillectomy (Chronic) Social History Smoking/Tobacco Use Status: Never Alcohol Intake: never Drug use: Never Do you feel safe at home: Yes Do you feel safe in your relationship?: Yes
--- NOTE | 2019-10-03 15:25 | INITIAL_ITS ---
- If Service Date Differs Date of service: 10/03/19 Time of Service: 15:25 Care Management Initial Assess REASON FOR HOSPITALIZATION:: Acute kidney Injury PAST MEDICAL HISTORY/PAST SURGICAL HISTORY:: Medical hx: BPH, GERD Surgical hx: laminectomy 09/21/19, hernia repair, tonsilectomy. PREVIOUS FUNCTIONAL STATUS/SOCIAL/FAMILY SUPPORTS:: Herrera lives with his Brandie in [place], [place]. He works for the [employer] from home. He is independent with ADL's and transportation he does use a cane at times for ambulation. CURRENT FUNCTIONAL STATUS:: Herrera is alert and engaged when CM completes assessment. He states that he is being discharge today. He has had the jurado cath in the past and will be discharged with it. He states he does not need any additional services at home and has a follow up with . Herrera states he has had great care here from the ED to the Medical surgical unit. He feels he is ready to be discharged. ADVANCE DIRECTIVES:: On file Has patient been provided with info about the portal/API?: Yes Did the patient sign up for the portal?: Yes CODE STATUS:: Full Code INSURANCE COVERAGE / FINANCIAL ISSUES:: Medicare and [employer] CURRENT HOME/COMMUNITY SERVICES/EQUIPMENT:: None, he does use a cane for ambulation when needed. PRIMARY CARE PHYSICIAN:: Jason Muñoz POTENTIAL DISCHARGE NEEDS:: Follow up with , and PCP. PATIENT/FAMILY EDUCATION NEEDS:: Discharge education, limitations and follow up plan of care including ask me three and self management ANTICIPATED BARRIERS TO DISCHARGE:: None TRANSPORTATION:: Via private car with spouse PLAN:: Herrera is being discharged today he will have close follow up with . CM will set him up with [facility] portal so he can contact . Herrera with have the jurado at time of discharge and understands how to care for the jurado.
[2019-10-03 15:40] VITALS: BP 108/70; PULSE 79; RESP 19; TEMP 36.2; O2SAT 96
== END 2019-10-03 16:00 | disposition home or self-care (01) ==
LOC: ER 10-03 01:44 → MS 10-03 02:14
PROVIDERS: Nurse Practitioner Family; Physician Assistant; Admitting Provider Family Medicine; Emergency Provider Student in an Organized Health Care Education/Training Program; PCP Internal Medicine; Visit Provider Family Medicine
DX: N17.9 Acute kidney failure, unspecified (principal); N99.89 Other postprocedural complications and disorders of genitourinary system; R33.8 Other retention of urine; N13.8 Other obstructive and reflux uropathy; Z11.59 Encounter for screening for other viral diseases; K21.9 Gastro-esophageal reflux disease without esophagitis; K59.00 Constipation, unspecified; N40.0 Benign prostatic hyperplasia without lower urinary tract symptoms
CPT/HCPCS: 36410; 36415; 51703; 80048; 80053; 96361; 96374; 99213; 99217; 99221; 99252; 99285; NC; U0003; 74176; 81003; 81015; 85025; 87086; 99235; G0378; J0131

== ENCOUNTER 2019-10-06 09:36 | Outpatient (CLI) | payer BC, MEDICARE, SELFPAY ==
[2019-10-06 15:36] LABS: Anion Gap 8.8 mmol/L (3-11); BUN 22 mg/dL (7-18); CO2 28.2 mmol/L (21.0-32.0); CREATININE 1.19 mg/dL (0.70-1.30); Calcium 9.2 mg/dL (8.5-10.1); Chloride 105 mmol/L (98-107); Estimated GFR 58.53 (mL/min/1.73m2); Glucose 108 mg/dL (74-106); Potassium 4.9 mmol/L (3.5-5.1); Sodium 142 mmol/L (136-145)
== END 2019-10-06 09:56 ==
PROVIDERS: PCP Internal Medicine; Visit Provider Nurse Practitioner Family
DX: N17.9 Acute kidney failure, unspecified (principal)
CPT/HCPCS: 36415; 80048

== ENCOUNTER 2020-02-17 14:35 | Observation (INO) | payer BC, MEDICARE, SELFPAY ==
[2020-02-17] VITALS (46 sets, daily range): BP systolic 110–134; BP diastolic 56–82; PULSE 52–94; RESP 10–23; TEMP 36.4–37; O2SAT 89–100
--- NOTE | 2020-02-17 14:30 | RT.EKG_ITS ---
APPROVED REPORT Exam: Resting ECG Patient Location: E HR:76 bpm ECG Measurements Heart Rate 76 AXIS GA 200 P 39 QRSd 100 QRS -47 QT 432 T 43 QTc 485 Conclusion Sinus rhythm, normal P axis Ventricular bigeminy Left axis deviation Low voltage,
--- NOTE | 2020-02-17 14:45 | DI.CT_ITS ---
EXAM: CT HEAD WO CLINICAL HISTORY: Dizziness. TECHNIQUE: Imaging Protocol: Axial computed tomography images with coronal and sagittal reformatted images were created and reviewed COMPARISON: No exams were available for comparison FINDINGS: Ventricles and Extra axial spaces: Normal in size and morphology for the patient's age. Hemorrhage: None. Cerebral parenchyma: Mild atrophy. Mild white matter changes consistent with small vessel disease. Midline shift: None. Brainstem/Cerebellum: Normal. Calvarium: Normal. Visualized Paranasal sinuses/Mastoids: Clear. IMPRESSION: No acute abnormality. RADIATION DOSE DELIVERED: 811.9mGy.cm Total DLP 811.9mGy.cm Total DLP DATA REPOSITORY: All CT scans at this facility are submitted to the National Radiology Data Registry (NRDR) Dose Index Registry (DIR) with the [employer] (ACR). RADIATION OPTIMIZATION: All CT scans at this facility use at least one of these dose optimization te chniques: automated exposure control; mA and/or kV adjustment per patient size (includes targeted exa ms where dose is matched to clinical indication); or iterative reconstruction.
--- NOTE | 2020-02-17 14:45 | DI.RAD_ITS ---
EXAM: XR CHEST 1V IN DI DEPT CLINICAL HISTORY: dizziness TECHNIQUE: 2D digital imaging was performed. COMPARISON: No exams were available for comparison FINDINGS: LUNGS: Clear. No pleural effusion. Mild apical scarring on the left. HEART: Normal size. Tortuous aorta. MEDIASTINUM: Moderate size hiatal hernia. BONES: Unremarkable. IMPRESSION: No acute pulmonary findings. DATA REPOSITORY: RADIATION DOSE DELIVERED:
[2020-02-17] MEDS: Meclizine 25 MG TAB PO (15:05)
--- NOTE | 2020-02-17 15:05 | W.ED.GENAD ---
Discharge Plan Disposition Patient Disposition: [facility] INPATIENT Condition: Stable Discharge Details Clinical Impression: Acute UTI, Dizziness Admit Date/Time: 02/17/20 20:02 Admit Provider: Juan A Bryan Attending Provider: Juan A Bryan Primary Care Provider: Jason Muñoz ED Provider: Elaine Ray Discharge Data Discharge Date/Time-TO BE ENTERED AT DEPARTURE: 02/17/20 20:10 Medical Decision Making <LINNEA Staton - Last Filed: 02/18/20 08:05> 84-year-old gentleman with past medical history that includes BPH, GERD, presenting to the ER today for what he describes as a vertigo. Went to bed last night asymptomatic, woke up today with dizziness, described as the room spinning. Associated with nausea. He denies any recent illness or trauma. He prefers to lie flat on the stretcher as sitting up or movement makes his symptoms worse. This does make his examination slightly more challenging. He otherwise appears well, nontoxic. He is hemodynamically stable. He will be given a liter of IV fluid and p.o. meclizine. We will initiate a cardiac work-up including a CT of his head. Clinically this certainly appears to be vertigo in nature but certainly cannot rule out other etiologies such as CVA, TIA, M?ni?re's disease, infectious process, electrolyte abnormality, hyper or hypoglycemia, etc. Initial laboratory values do not reveal any obvious emergent process. CT of head without contrast read by radiology as no acute intracranial abnormality. X-ray of chest read by radiology as no acute pulmonary process. Upon reevaluation patient is resting comfortably. No longer has nystagmus. Reports that movement of his eyes no longer elicits symptoms. Care transitioned to my colleague MAU Ray at 1600. Pending urinalysis, repeat EKG and troponin at 3 hours. If patient remains asymptomatic I do believe that if he would prefer to go home it is reasonable however certainly admission could be offered for observation and more extensive work-up. Medical Records Medical records reviewed: Yes I reviewed the patient's medical records. Lab Data Lab results reviewed: Yes I reviewed the patient's lab results. Lab results narrative: Laboratory Tests Range/Units 02/17/20 02/17/20 02/17/20 15:00 15:00 15:00 WBC (4.4-10.8) 10^3/uL 7.96 RBC (4.36-5.78) 10^6/uL 4.62 Hgb (13.5-17.5) g/dL 13.5 Hct (40.0-50.0) % 42.0 MCV (80-95) fL 90.9 MCH (27.0-33.0) pg 29.2 MCHC (32.0-36.0) % 32.1 RDW (11.8-14.1) % 13.0 Plt Count (130-400) 10^3/uL 178 MPV (8.0-11.0) fL 9.5 Immature Gran % 0.5 Neutrophils % 85.0 Lymphocytes % 8.2 Monocytes % 5.4 Eosinophils % 0.6 Basophils % 0.3 Nucleated RBC % % 0 Absolute Neutrophils (1.2-6.7) 10^3/uL 6.77 H Absolute Lymphocytes (1.2-3.4) 10^3/uL 0.65 L Absolute Monocytes (0.1-0.8) 10^3/uL 0.43 Absolute Eosinophils (0.0-0.7) 10^3/uL 0.05 Absolute Basophils (0.0-0.2) 10^3/uL 0.02 PT (9.3-11.0) sec 10.7 INR (0.9-1.1) 1.1 APTT (21.0-27.5) sec 22.8 Sodium (136-145) mmol/L 143 Potassium (3.5-5.1) mmol/L 4.1 Chloride (98-107) mmol/L 108 H Carbon Dioxide (21.0-32.0) mmol/L 26.9 Anion Gap (3-11) mmol/L 8.1 BUN (7-18) mg/dL 22 H Creatinine (0.70-1.30) mg/dL 1.25 Estimated GFR/1.73 m2 (mL/min/1.73m2) 55.30 Glucose (74-106) mg/dL 138 H Calcium (8.5-10.1) mg/dL 8.7 Magnesium (1.8-2.4) mg/dL 1.9 Total Bilirubin (0.2-1.0) mg/dL 0.6 AST (15-37) U/L 17 ALT (16-63) U/L 19 Alkaline Phosphatase (46-116) U/L 62 Troponin I (<0.06) ng/mL < 0.05 Total Protein (6.4-8.2) g/dL 6.3 L Albumin (3.4-5.0) g/dL 3.5 TSH (0.36-3.74) uIU/mL 2.41 ECG Data Attestation: I personally reviewed and interpreted this ECG (s) as follows: Interpretation: Please see official report by Dr. Gomez. Sinus rhythm, ventricular bigeminy, ventricular rate of 76. No STEMI. <Elaine Ray - Last Filed: 02/17/20 19:37> Care assumed from provider (LINNEA Mao) please see his previous HPI and physical exam. Discussed patient details and case and pending workup and disposition. Patient is hemodynamically stable, and alert and oriented. At this time pending urinalysis, repeat troponin and EKG. Patient reevaluation, using urinal requesting something to eat. Will try p.o. challenge. 1700: Patient reevaluation, he is eating a sandwich at this time still unable to give a urine sample. IV fluids increased to 250 an hour he states that he is still having dizziness when he moves his head. He states that the public health staff nurse attempted to get him up to sit on the side of the bed for urine sample but she was unable to tolerate at the time. Discussed possible admission with him which he is open to this time since he is unable to ambulate. Meclizine 25 mg was given previously to signout. 1854: Repeat troponin is within normal limits, patient reevaluation he states that he feels somewhat better at this time. Urinalysis shows evidence of urinary tract infection although patient is asymptomatic. He denies any dysuria. He does have positive nitrites moderate leukocytes noted with 10-20 WBCs culture is pending at this time. Discussed patient case and details with Dr. Bryan who is on for hospitalist at this time he verbalized understanding and agrees to accept patient for admission for dizziness and urinary tract infection. Discussed plan with patient who verbalizes understanding and is agreeable to the plan. HPI <LINNEA Staton - Last Filed: 02/18/20 08:05> General Mode of arrival: EMS. Date/Time Provider Initiated Documentation: 02/17/20 14:40. Limitations to Documentation: no limitations. Information obtained by: patient and EMS. HPI Narrative: This is a 84-year-old gentleman, past medical history that includes BPH, GERD, urinary retention, presenting to the ER for what he describes as vertigo. He states that he went to bed last night asymptomatic, woke up this morning noticing the room was spinning. He feels as though his symptoms are worse with movement of his eyes or head, improves with keeping . patient reports nausea and some dry heaving but no actual vomiting. He denies any recent illness or trauma. He was given Zofran by EMS on his way to the ER and reports significant improvement. He denies any headache, visual changes, neck pain, chest pain, shortness of breath, abdominal pain, nausea, vomiting, back pain, urinary or bowel incontinence, numbness, tingling, weakness. He has never had these symptoms previously. Related Data Home Medications Medication Instructions Recorded Confirmed cholecalciferol (vitamin D3) 50 50 mcg PO DAILY 10/11/19 02/17/20 mcg (2,000 unit) capsule aspirin 324 mg PO DAILY 02/17/20 02/17/20 famotidine [Pepcid] 20 mg PO DAILY 02/17/20 02/17/20 tamsulosin 0.4 mg PO DAILY 02/17/20 02/17/20 Allergies Allergy/AdvReac Type Severity Reaction Status Date / Time codeine Allergy Mild Nausea Unverified 02/17/20 14:47 latex Allergy Mild Skin Rash Unverified 02/17/20 14:47 norbert Allergy Unverified 02/17/20 14:48 General Stated Complaint: Dizzy/Sync GURU: 2 Review of Systems <LINNEA Staton - Last Filed: 02/18/20 08:05> Constitutional Constitutional: Denies fatigue, Denies fever(s), Denies headache(s) and Denies weakness Eyes Eyes: Denies change in vision ENT Ears, Nose, Mouth, and Throat: Reports vertigo, Reports dizziness, Denies headache(s), Denies neck pain and Denies disequilibrium Cardiovascular Cardiovascular: Denies chest pain and Denies dyspnea Respiratory Respiratory: Denies cough and Denies dyspnea Gastrointestinal Gastrointestinal: Denies abdominal pain, Reports nausea and Denies vomiting Genitourinary Genitourinary: Denies dysuria Musculoskeletal Musculoskeletal: Denies back pain, Denies neck pain, Denies numbness and Denies tingling Integumentary/Breasts Skin/Breast: Denies rash Neurologic Neurologic: Reports vertigo, Reports dizziness, Denies headache(s), Denies numbness, Denies tingling, Denies disequilibrium and Denies weakness Endocrine Endocrine: Denies fatigue PFSH <LINNEA Staton - Last Filed: 02/18/20 08:05> Medical History (Updated 02/18/20 @ 01:14 by Juan A Bryan MD) BPH (benign prostatic hyperplasia) GERD (gastroesophageal reflux disease) Postoperative urinary retention Surgical History History of hernia repair History of laminectomy History of tonsillectomy Social History Smoking/Tobacco Use Status: Never Smoking risk assessment performed?: Yes Alcohol Intake: current Alcohol Intake frequency: a few times a month Alcohol type: wine Drug use: Never Do you feel safe at home: Yes Do you feel safe in your relationship?: Yes Exam <LINNEA Staton - Last Filed: 02/18/20 08:05> Const General: cooperative, healthy appearing, comfortable and no acute distress Orientation: alert, awake and oriented x3 HENMT Head: normal to inspection, normocephalic and atraumatic General nose exam: external nose normal Face and sinus: normal facial exam Mouth: oral mucosae normal and moist mucous membranes Throat: posterior oropharynx normal Eyes General: appearance normal, both eyes and all related structures Alignment and Position: alignment normal Periorbital: periorbital findings normal Eyelids: eyelids normal Conjunctivae: conjunctivae normal Sclera: sclerae normal Cornea: corneas normal Pupils: PERRL EOM: EOM intact bilaterally Direct ophthalmoscopy: normal light reflex Other: Minimal right to left nystagmus Neck Neck: normal visual inspection, full ROM, no meningeal signs, trachea midline, supple and nontender Resp Effort & Inspection: normal respiratory effort and able to speak in complete sentences Auscultation: clear to auscultation bilaterally Cardio Rate: regular rate Rhythm: regular rhythm GI Palpation: soft, no pulsatile masses and nontender Back/Spine/Pelvis Back: No back tenderness Skin General skin exam: no rashes or lesions noted Neuro General: patient alert, patient awake, patient oriented x3, moves all extremities and no focal motor deficits Cranial Nerves: CN's II-XI intact bilaterally Cognition: normal cognition Speech: speech normal Motor: muscle tone normal throughout, strength 5/5 throughout, no pronator drift, no movement abnormalities noted and no fasciculations Sensory Exam: no sensory deficits noted Extrem General: normal to inspection, full ROM, capillary refill normal, no pedal edema and no calf tenderness Psych Appearance: grossly normal Mental Status: mental status grossly normal Course <LINNEA Staton - Last Filed: 02/18/20 08:05> Vital Signs Vital signs: Vital Signs Temperature 36.4 C L 02/17/20 14:41 Pulse 77 02/17/20 14:41 Respiratory Rate 16 02/17/20 14:41 Blood Pressure 125/72 02/17/20 14:41 Pulse Oximetry 98 02/17/20 14:41 Temperature 36.4 C L 02/17/20 14:41 Temperature Source Skin 02/17/20 14:41 Pulse 52 L 02/17/20 14:44 Pulse 72 02/17/20 14:50 Respiratory Rate 12 02/17/20 14:53 Respiratory Effort 02/17/20 14:53 Respiratory Depth Normal 02/17/20 14:53 Respiratory Pattern Normal 02/17/20 14:53 Blood Pressure 134/61 02/17/20 14:46 Blood Pressure Mean 77 02/17/20 14:46 Blood Pressure Position Supine 02/17/20 14:41 Pulse Oximetry 96 02/17/20 14:50 Oxygen Delivery Method Room Air 02/17/20 14:41 Oxygen Flow Rate 0 02/17/20 14:41 Pain Level 0 02/17/20 14:41 Sign Out <LINNEA Staton - Last Filed: 02/18/20 08:05> Sign Out Data: Sign Out Comment: Presents with vertigo-like symptoms. Did have a right to left nystagmus. He has improved with Zofran and meclizine. Initial laboratory values, head CT and chest x-ray unremarkable. Will require further evaluation, observation, repeat troponin and EKG. Last updated by Fox Miranda PA at 02/17/20 16:01
[2020-02-17 15:09] LABS: Abs Immature Grans 0.04 10^3/uL (0.0-0.06); Absolute Basophil Count 0.02 10^3/uL (0.0-0.2); Absolute Eosinophil Count 0.05 10^3/uL (0.0-0.7); Absolute Lymphocyte Count 0.65 10^3/uL (1.2-3.4); Absolute Monocyte Count 0.43 10^3/uL (0.1-0.8); Absolute Neutrophil Count 6.77 10^3/uL (1.2-6.7); Basophils % 0.3; Eosinophils % 0.6; HGB 13.5 g/dL (13.5-17.5); Immature Grans % 0.5; Lymphocytes % 8.2; MCH 29.2 pg (27.0-33.0); MCHC 32.1 % (32.0-36.0); MCV 90.9 fL (80-95); MPV 9.5 fL (8.0-11.0); Monocytes % 5.4; Nucleated RBC 0 %; Platelet Count 178 10^3/uL (130-400); RBC 4.62 10^6/uL (4.36-5.78); RDW-SD 43.1 fL; WBC 7.96 10^3/uL (4.4-10.8)
[2020-02-17] MEDS: Normal Saline 1,000 ML 150 ML IV ×2 (15:10→20:35)
[2020-02-17 15:22] LABS: INR 1.1 (0.9-1.1); PTT Activated 22.8 sec (21.0-27.5); Prothrombin Time 10.7 sec (9.3-11.0)
[2020-02-17 15:31] LABS: ALT 19 U/L (16-63); AST 17 U/L (15-37); Albumin 3.5 g/dL (3.4-5.0); Alkaline Phosphatase 62 U/L (46-116); Anion Gap 8.1 mmol/L (3-11); BUN 22 mg/dL (7-18); Bilirubin, Total 0.6 mg/dL (0.2-1.0); CO2 26.9 mmol/L (21.0-32.0); CREATININE 1.25 mg/dL (0.70-1.30); Calcium 8.7 mg/dL (8.5-10.1); Chloride 108 mmol/L (98-107); Glucose 138 mg/dL (74-106); Magnesium 1.9 mg/dL (1.8-2.4); Potassium 4.1 mmol/L (3.5-5.1); Sodium 143 mmol/L (136-145); TSH 2.41 uIU/mL (0.36-3.74); Total Protein 6.3 g/dL (6.4-8.2); Troponin I < 0.05 ng/mL (<0.06)
--- NOTE | 2020-02-17 15:40 | DI.VRAD_ITS ---
PROCEDURE INFORMATION: Exam: CT Head Without Contrast Exam date and time: 02/17/2020 3:00 PM Age: 84 years old Clinical indication: Dizziness TECHNIQUE: Imaging protocol: Computed tomography of the head without contrast. COMPARISON: No relevant prior studies available. FINDINGS: Brain: Murillo-white matter differentiation is normal. There is no mass effect or midline shift. There is no intra-axial hemorrhage. There are mild confluent and patchy foci of periventricular and subcortical white matter hypodensities which might reflect chronic microvascular ischemic disease. There is parenchymal volume loss with compensatory dilatation of ventricles, sulci and basilar cisterns. There is no extra-axial fluid collection. Cerebral ventricles: No ventriculomegaly. Bones/joints: Unremarkable. No acute fracture. Paranasal sinuses: Visualized sinuses are unremarkable. No fluid levels. Mastoid air cells: Visualized mastoid air cells are well aerated. Soft tissues: Unremarkable. IMPRESSION: No acute intracranial abnormality. Dictated and Authenticated by: Obdulio Metzger MD. Ordering:MORIAH Braxton MD
--- NOTE | 2020-02-17 15:41 | DI.VRAD_ITS ---
PROCEDURE INFORMATION: Exam: XR Chest, 1 View Exam date and time: 02/17/2020 3:31 PM Age: 84 years old Clinical indication: Other: Dizziness TECHNIQUE: Imaging protocol: XR of the chest Views: 1 view. COMPARISON: No relevant prior studies available. FINDINGS: Lungs: Unremarkable. No consolidation. Pleural space: Unremarkable. No pleural effusion. No pneumothorax. Heart/Mediastinum: There is a hiatal hernia. Vasculature: Aorta is calcified and tortuous. Bones/joints: Unremarkable. IMPRESSION: No acute pulmonary process. Dictated and Authenticated by: Obdulio Metzger MD. Ordering:MORIAH Braxton MD
--- NOTE | 2020-02-17 17:13 | NUR.NOTE ---
pt provided with meal tray and water Nursing Note:
[2020-02-17 17:44] LABS: Bilirubin Negative (Negative); Blood Trace-intact (Negative); Glucose Negative (Negative); Ketones 40 mg/dL (Negative); Leukocyte Esterase Moderate (Negative); Nitrite Positive (Negative); Specific Gravity 1.025 (1.005-1.025); Urobilinogen 0.2 EU/dL (Up TO 0.2)
--- NOTE | 2020-02-17 17:45 | RT.EKG_ITS ---
APPROVED REPORT Exam: Resting ECG Patient Location: E HR:92 bpm ECG Measurements Heart Rate 92 AXIS PA 207 P 16 QRSd 97 QRS -49 QT 392 T 12 QTc 469 Conclusion Sinus rhythm. Paired ventricular premature complexes. Left anterior fascicular block
[2020-02-17 17:47] LABS: Clarity Cloudy (Clear)
[2020-02-17 17:51] LABS: Bacteria Many HPF (Negative); C & S Indicated? Yes; Casts 0-2 Hyaline LPF (Negative); Crystals Negative HPF (Negative); Epithelial Cells Rare HPF (Negative); Mucus Negative (Negative); RBC 0-2 HPF (0-2)
[2020-02-17] MEDS: Calcium Carbonate *TUMS* 500 MG CHEW 1000 MG PO (18:10)
[2020-02-17 18:27] LABS: Troponin I < 0.05 ng/mL (<0.06)
[2020-02-17] MEDS: cefTRIAXone 1 GM/50 ML BAG IVPB (19:04)
[2020-02-17] MEDS: Acetaminophen 325 MG TAB 650 MG PO (20:35)
[2020-02-17] MEDS: diazePAM 2 MG TAB PO (20:36)
--- NOTE | 2020-02-18 01:04 | HPE_ITS ---
Date of service: 02/17/20 Time of Service: 19:04 Assessment and Plan Assessment and plan (1) Vertigo: Status: Acute Assessment and plan: Appears to be BPPV Given meclizine in the ED. Valium 2mg po x 1. If not resolved in the AM, PT consult to consider maneuvers. CT w/o contrast was negative. Consideration for CTA or MRI if not continuing to improve. (2) Acute UTI: Status: Acute Assessment and plan: Rocephin given in the ED. Likely related to his obstructive uropathy from BPH. Asymptomatic. Culture pending. (3) Obstructive uropathy: Status: Acute Assessment and plan: Cont Tamsulosin. History of Present Illness History of Present Illness Chief Complaint: Vertigo Narrative: This is an 84 yo male with a PMH of BPH with retention, GERD, Lumbar DJD. He endorsed that when he woke up in the AM of day of admission he felt like the room was spinning. The spinning worsened with movement of his eyes or head. + nausea and dry heaves. No F/C, CP/palpitations. No trauma/head injury. No weakness of an extremity, dysarthria, numbness/tingling. No SOA. Zofran given by EMS en route significantly improved his symptoms. He has never experienced vertigo in the past. In the ED. He was given a dose of meclizine and IV NS. CT head was negative for any acute findings. EKG and troponin were unremarkable. He initially was noted to have nystagmus; this resolved. Lab was unremarkable. UA was + for nitrites, leukocyte esterase and 10-20 WBCs, many bacteria. Rocephin 1 gram IV administered. Admitted under observation status. Review of Systems All systems reviewed & are unremarkable except as noted in HPI and below PFSH Medical History (Updated 02/18/20 @ 01:14 by Juan A Bryan MD) BPH (benign prostatic hyperplasia) GERD (gastroesophageal reflux disease) Postoperative urinary retention Surgical History History of hernia repair History of laminectomy History of tonsillectomy Social History Smoking/Tobacco Use Status: Never Smoking risk assessment performed?: Yes Alcohol Intake: current Alcohol Intake frequency: a few times a month Alcohol type: wine Drug use: Never Do you feel safe at home: Yes Do you feel safe in your relationship?: Yes Meds Home Medications and Allergies Home Medications Medication Instructions Recorded Confirmed Type cholecalciferol (vitamin D3) 50 50 mcg PO DAILY 10/11/19 02/17/20 History mcg (2,000 unit) capsule aspirin 324 mg PO DAILY 02/17/20 02/17/20 History famotidine [Pepcid] 20 mg PO DAILY 02/17/20 02/17/20 History tamsulosin 0.4 mg PO DAILY 02/17/20 02/17/20 History Allergies Allergy/AdvReac Type Severity Reaction Status Date / Time codeine Allergy Mild Nausea Unverified 02/17/20 14:47 latex Allergy Mild Skin Rash Unverified 02/17/20 14:47 norbert Allergy Unverified 02/17/20 14:48 Exam Narrative Exam Narrative: Patient sleeping. Arousable. Const General: cooperative and no acute distress Nutritional Appearance: overweight Orientation: not confused Resp Effort & Inspection: normal respiratory effort Auscultation: clear to auscultation bilaterally Cardio Rate: regular rate Rhythm: regular rhythm Heart Sounds: S1 normal and S2 normal GI Palpation: soft and nontender Neuro General: moves all extremities Cranial Nerves: no nystagmus Extrem General: no pedal edema and no calf tenderness Results Labs Result diagrams: 02/17/20 15:00 02/17/20 15:00 Labs: Laboratory Results - last 24 hr 02/17/20 02/17/20 02/17/20 15:00 15:00 15:00 WBC 7.96 RBC 4.62 Hgb 13.5 Hct 42.0 MCV 90.9 MCH 29.2 MCHC 32.1 RDW 13.0 Plt Count 178 MPV 9.5 Immature Gran % 0.5 Neutrophils % 85.0 Lymphocytes % 8.2 Monocytes % 5.4 Eosinophils % 0.6 Basophils % 0.3 Nucleated RBC % 0 Absolute Neutrophils 6.77 H Absolute Lymphocytes 0.65 L Absolute Monocytes 0.43 Absolute Eosinophils 0.05 Absolute Basophils 0.02 PT 10.7 INR 1.1 APTT 22.8 Sodium 143 Potassium 4.1 Chloride 108 H Carbon Dioxide 26.9 Anion Gap 8.1 BUN 22 H Creatinine 1.25 Estimated GFR/1.73 m2 55.30 Glucose 138 H Calcium 8.7 Magnesium 1.9 Total Bilirubin 0.6 AST 17 ALT 19 Alkaline Phosphatase 62 Troponin I < 0.05 Total Protein 6.3 L Albumin 3.5 TSH 2.41 Urine Color Urine Clarity Urine pH Ur Specific [place] Urine Protein Urine Ketones Urine Blood Urine Nitrite Urine Bilirubin Urine Urobilinogen Ur Leukocyte Esterase Urine RBC Urine WBC Ur Epithelial Cells Urine Crystals Urine Bacteria Urine Casts Urine Mucus Ur Culture Indicated? Urine Glucose 02/17/20 02/17/20 17:33 18:00 WBC RBC Hgb Hct MCV MCH MCHC RDW Plt Count MPV Immature Gran % Neutrophils % Lymphocytes % Monocytes % Eosinophils % Basophils % Nucleated RBC % Absolute Neutrophils Absolute Lymphocytes Absolute Monocytes Absolute Eosinophils Absolute Basophils PT INR APTT Sodium Potassium Chloride Carbon Dioxide Anion Gap BUN Creatinine Estimated GFR/1.73 m2 Glucose Calcium Magnesium Total Bilirubin AST ALT Alkaline Phosphatase Troponin I < 0.05 Total Protein Albumin TSH Urine Color Yellow Urine Clarity Cloudy Urine pH 7.0 Ur Specific [place] 1.025 Urine Protein Negative Urine Ketones 40 H Urine Blood Trace-intact H Urine Nitrite Positive H Urine Bilirubin Negative Urine Urobilinogen 0.2 Ur Leukocyte Esterase Moderate H Urine RBC 0-2 Urine WBC 10-20 H Ur Epithelial Cells Rare Urine Crystals Negative Urine Bacteria Many Urine Casts 0-2 hyaline Urine Mucus Negative Ur Culture Indicated? Yes Urine Glucose Negative Last Vital Signs Temp 36.6 C 02/17/20 20:12 Pulse 77 02/17/20 20:12 Resp 18 02/17/20 20:12 BP 133/80 02/17/20 20:12 Pulse Ox 96 02/17/20 20:12 COVID-19 Screening Have you, or household traveled for leisure in last 14 days?: No Had IN PERSON contact w/suspected or confirmed C-19 person: No
[2020-02-18] MEDS: Normal Saline 1,000 ML 150 ML IV ×2 (03:26→10:50)
[2020-02-18 03:29] VITALS: BP 111/66; PULSE 83; RESP 20; TEMP 36.5; O2SAT 95
[2020-02-18 07:35] VITALS: BP 115/56; PULSE 71; RESP 18; TEMP 36.5; O2SAT 94
--- NOTE | 2020-02-18 08:32 | INITIAL_ITS ---
- If Service Date Differs Date of service: 02/18/20 Time of Service: 08:32 Care Management Initial Assess REASON FOR HOSPITALIZATION:: Vertigo and Urinary Tract Infection. PAST MEDICAL HISTORY/PAST SURGICAL HISTORY:: Medical History: BPH (benign prostatic hyperplasia), GERD (gastroesophageal reflux disease), and Postoperative urinary retention. Surgical History: History of hernia repair, History of laminectomy, and. History of tonsillectomy. PREVIOUS FUNCTIONAL STATUS/SOCIAL/FAMILY SUPPORTS:: Herrera lives in [place] with his , Brandie. Together they have one son who lives in [place]. Herrera and his formerly resided in [place], [place], but approximately 11 years ago they decided to make their vacation home in [place], [place], their year round residence. 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 Herrera is independent at baseline. CURRENT FUNCTIONAL STATUS:: Herrera is sitting in a chair when CM comes to meet with him. He is pleasant and easily engages in conversation. Herrera states he is feeling better and is looking forward to returning home. ADVANCE DIRECTIVES:: On file; Brandie Tyler is healthcare agent. Has patient been provided with info about the portal/API?: Yes Did the patient sign up for the portal?: Yes (Already enrolled) CODE STATUS:: Full Code INSURANCE COVERAGE / FINANCIAL ISSUES:: BCBS and Medicare. CURRENT HOME/COMMUNITY SERVICES/EQUIPMENT:: Herrera ambulates with a cane when he walks long distances. He has no other medical equipment and no current home or community services. PRIMARY CARE PHYSICIAN:: Jason Muñoz POTENTIAL DISCHARGE NEEDS:: Follow up appointment with PCP and urology. PATIENT/FAMILY EDUCATION NEEDS:: Discharge instructions, limitations, follow up plan of care including Ask Me Three and self management. ANTICIPATED BARRIERS TO DISCHARGE:: None. TRANSPORTATION:: Via private vehicle with his . PLAN:: Herrera will return home when medically cleared by provider. He will follow up with his PCP, urologist, and discharge plan of care. His , Brandie, will drive him home via private vehicle when ready.
[2020-02-18] MEDS: Acetaminophen 325 MG TAB 650 MG PO (08:51)
[2020-02-18] MEDS: Famotidine 20 MG TAB PO (08:52)
[2020-02-18] MEDS: Cholecalciferol (Vitamin D3) 1,000 UNIT TAB 2000 UNITS PO (08:52)
[2020-02-18] MEDS: Aspirin 325 MG TAB PO (08:53)
[2020-02-18] MEDS: Tamsulosin 0.4 MG CAPCR PO (08:53)
--- NOTE | 2020-02-18 10:34 | PT.INIE ---
Date of service: 02/18/20 Time of Service: 09:35 PT Notes Visit Reasons: VERTIGO, UNRINARY TRACT INFECTION Inpatient Physical Therapy Evaluation Date: 02/18/20 Referring Doctor: Chantal Nicholson NP PT Orders: PT CONSULT: vertigo Precautions: standard Patient Profile/Admitting Diagnosis: Patient admitted from ER with symptoms of severe vertigo. PMHX: acute UTI h/o lumbar laminectomy x 2 (1977, 09/2019) Social History/Home Situation: Patient lives independently with his in a private home. He works for the [employer] from his home, stating the majority of his work is seated at the computer. He has completed an independent gym program at [facility] for many years, and plans to return for formal rehab after his last back surgery, with scheduled evaluation 03/04/20. Equipment Owned/DME: cane, walker Subjective: Herrera states that he began experiencing severe, room spinning dizziness upon waking up yesterday. His has experienced BPPV in the past, and the two felt confident that that was what he was experiencing. He tried to wait out symptoms, but had severe dizziness and nausea with any motion of his head or eyes. He attempted to get to the bathroom by crawling, but ended up having to alert EMS, as he was unable to progress. He admits to bilat tinnitus, although this has been chronic x 10 years, and unchanged in the past 48 hours. Admits to nausea, although without vomiting. Denies hearing loss. Reports a brief episode of visual changes about 24 hours prior to onset of dizziness; he reports a brief episode of floating lights, unsure which eye. States that he has experienced this multiple times in the past, and symptoms always resolve with time. Herrera also admits to some chronic mobility issues. States that he has chronic left calf weakness, and has lacked push off on the left since 2011. He states that is posture is better since his last surgery, but he still finds himself stooping due to weakness in his trunk. He admits to using a cane for longer distances, and relying on hunter and furniture in his home at times. States that his path is not very straight when he starts walking, but gets better as he goes. He walks in his home for exercise daily, tolerating a slow 1000 feet at a time. Objective: General Observation: Resting in bed, with IV in RUE. Patient conversing with nursing, in no acute distress. Moving head about normally during conversation. Mental Status: A&Ox3. Pleasant and cooperative throughout. Pain: denies ROM: Right Upper Extremity: WFL Left Upper Extremity: WFL Right Lower Extremity: WFL Left Lower Extremity: WFL Cervical motion: Patient tolerates slow cervical motions. He demonstrates significant cervical protraction, worse in sitting. Tolerates rotation to approx 50 degrees bilat. Full flexion and extension, without symptom provocation. LF allows 20 degrees bilat, with associated ipsilateral rotation. Strength: Right Upper Extremity: WFL Left Upper Extremity: WFl Right Lower Extremity: Quads 4+/5. Ankle DF 4/5. EHL 4/5 Left Lower Extremity: Quads 4+/5. Ankle DF 3+/5. EHL 4/5. Ankle PF 3-/5 Sensation: patient reports diminished sensation in bilat feet, chronic. Not formally assessed during today's session Bed Mobility/Transfers: supine-sit: independent sit-supine: independent scooting in bed: independent sit-stand: independent stand-sit: independent Gait: Patient ambulates 25'x2 with FWW and supervision. He demonstrates 15' ambulation without AD, and with CGA. Without AD, he demonstrates stooped posturing, slow shuffling gait, and path deviation. Balance: Static Sitting: normal Dynamic Sitting: normal Static Standing: good Dynamic Standing: fair Special Tests: visual tracking is NL, and without symptom provocation head thrust test is (-) visual lópez are normal on gross assessment, with the exception of upper lateral lópez bilat. This appears to be due to lid ptosis versus true field deficit. Coordination is intact with rapid alternating movements of UEs and LEs. Fine motor intact with thumb to digit tapping. No symptom provocation with sustained end-range cervical rotation. Modesta-Halpike testing is (-) bilaterally. Special Tests: Mobility Limitations Standardized Measure [facility] AM-PAC 6 clicks Basic Mobility Inpatient Short Form: Raw Score: 22 CMS Score: 21% deficit Informed Consent/Education: Patient instructed in purpose of PT consult and plan of care. He was instructed in habituation exercises for home completion (cervical rotation and flexion/extension, 5 second holds, seated position, 5 reps, 3x/day). Assessment: Patient is a 84 year old male referred to physical therapy services with the diagnosis of vertigo. Patient presents with clinical signs and symptoms consistent with BPPV, which has significantly improved since onset yesterday. He is now able to tolerate bed mobility, transfers and short distance ambulation without symptom exacerbation. Of note, he does have underlying mobility issues related to his long history of LBP and radiculopathy; I've encouraged him to utilize either his cane or WW at home as he feels he needs in order to reduce his fall risk. He does have a scheduled outpatient assessment 03/04/20, and he can discuss any residual vertigo symptoms with his therapist at that time. Otherwise, he is appropriate for d/c from PT services in acute care setting. He currently demonstrates the following impairment level findings: 1. gait impairments 2. postural deficits 3. symptoms of dizziness 4. limitations in activity tolerance Impairments are contributing to the following functional limitations: 1. unable to ambulate distances >1000' without AD 2. LE weakness and gait impairments contributing to increased fall risk Patient is assessed as a Low [id number] complexity based on the following: History: 84 year old male presenting with c/o severe vertigo, which has essentially resolved at time of consult. Symptoms are consistent with BPPV. Complicating factors include mobility deficits related to his long h/o LBP with radiculopathy. Examination: functional limitations as noted above Presentation: stable Decision Making: low complexity Plan of Care/Treatment Plan: D/C from PT in acute care setting DISCHARGE RECOMMENDATIONS: Home. Patient has both cane and WW at home, which he's been encouraged to utilize. He has a scheduled outpatient PT consult 03/04/20. TREATMENT CODE/TIME: 9:35-10:20 ([id number]) Mely Mallory, PT, DPT [facility]
--- NOTE | 2020-02-18 11:00 | NUR.NOTE ---
Nursing Note: Patient does have a past hx of urinary retention. @0 minutes post void of 650. Patient was bladder scaned for 294. This information was passed on to Ada Aguila CCC
--- NOTE | 2020-02-18 14:43 | DSE_ITS ---
Date of service: 02/18/20 Time of Service: 14:43 DS: Diagnosis Discharge Diagnosis (1) Vertigo: Start date: 02/18/20 Start time: 14:43 Status: Resolved Asessment and Plan: Resolved (2) Acute UTI: Start date: 02/18/20 Start time: 14:44 Status: Acute Asessment and Plan: will treat with 3 day course cefdinir (3) Obstructive uropathy: Start date: 02/18/20 Start time: 14:44 Status: Acute Asessment and Plan: On flomax above case discussed with Dr. Houston who is in agreement Discharge Plan Disposition Patient Disposition: HOME Condition: Improving Discharge Details Reason For Visit: VERTIGO, UNRINARY TRACT INFECTION Admit Date/Time: 02/17/20 20:02 Admit Provider: Juan A Bryan Attending Provider: Juan A Bryan Primary Care Provider: Jason Muñoz Hospital Course Hospital Course: This is an 84 yo male with a PMH of BPH with retention, GERD, Lumbar DJD. He endorsed that when he woke up in the AM of day of admission he felt like the room was spinning. The spinning worsened with movement of his eyes or head. + nausea and dry heaves. No F/C, CP/palpitations. No trauma/head injury. No weakness of an extremity, dysarthria, numbness/tingling. No SOA. Zofran given by EMS en route significantly improved his symptoms. He has never experienced vertigo in the past. In the ED. He was given a dose of meclizine and IV NS. CT head was negative for any acute findings. EKG and troponin were unremarkable. He initially was noted to have nystagmus; this resolved. Lab was unremarkable. UA was + for nitrites, leukocyte esterase and 10-20 WBCs, many bacteria. Rocephin 1 gram IV administered. Admitted under observation status. Over the course of the night symptoms improved with hydration and valium he was ambulatory without dizziness. He was transitioned to PO cefdinir for UTI. Will treat for 3 days. He is being discharged home, follow up with PCP in [address] Morse for vertigo. Home Meds and New Rx's Prescriptions: New diazepam 10 mg tablet 10 mg PO TID PRN (Reason: dizziness or vertigo) 1 Days Qty: 10 RF: 0 cefdinir 300 mg capsule 300 mg PO BID Qty: 6 RF: 0 Continued cholecalciferol (vitamin D3) 50 mcg (2,000 unit) capsule 50 mcg PO DAILY RF: 0 aspirin 325 mg Tablet 324 mg PO DAILY RF: 0 famotidine [Pepcid] 20 mg Tablet 20 mg PO DAILY RF: 0 tamsulosin 0.4 mg capsule 0.4 mg PO DAILY RF: 0 Discharge Instructions Instructions: Urinary Tract Infection in Men (DC), Benign Paroxysmal Positional Vertigo (DC), Dizziness (ED) Additional Instructions: Take diazepma as needed for dizziness Drink plenty of water Refer to Dr. Morse ENT for vertigo Follow up with PCP in 1-2 weeks for UTI Activity:: Activity as Tolerated Equipment/Supplies:: No Equipment Needed Diet:: As Tolerated Discharge Orders Discharge Orders: Discharge Order (Routine); Ordered 02/18/20 Ordered By: Chantal Nicholson DS: Summary Status at Discharge Functional status at discharge: independent ambulation Overall status at discharge: patient is back to baseline Mental Status: mental status grossly normal Speech and Movement: speech and movement normal Mood: congruent mood Affect: normal affect Exam Const General: cooperative, healthy appearing and no acute distress Nutritional Appearance: overweight Orientation: alert, awake and oriented x3 Resp Effort & Inspection: normal respiratory effort Auscultation: clear to auscultation bilaterally Cardio Rate: regular rate Rhythm: regular rhythm Heart Sounds: S1 normal and S2 normal GI Palpation: soft and nontender Neuro General: moves all extremities Cranial Nerves: no nystagmus Extrem General: no pedal edema and no calf tenderness Psych Mental Status: mental status grossly normal Speech and Movement: speech and movement normal Mood: congruent mood Affect: normal affect DS: Data Vitals/I&O Vitals and I&O: Vital Signs Temperature 36.5 C 02/18/20 07:35 Temperature Source Tympanic 02/18/20 07:35 Pulse 71 02/18/20 07:35 Pulse Rhythm Regular 02/18/20 09:54 Pulse 76 02/17/20 19:40 Respiratory Rate 18 02/18/20 07:35 Respiratory Effort Non-Labored 02/18/20 09:54 Respiratory Depth Normal 02/18/20 09:54 Respiratory Pattern Normal 02/18/20 09:54 Blood Pressure 115/56 L 02/18/20 07:35 Blood Pressure Mean 82 02/17/20 19:31 Blood Pressure Position Supine 02/17/20 14:41 Pulse Oximetry 94 02/18/20 07:35 Oxygen Delivery Method Room Air 02/18/20 07:35 Oxygen Flow Rate 0 02/18/20 07:35 Pain Level 3 02/18/20 08:51 Intake & Output 02/17/20 02/18/20 02/18/20 23:59 11:59 23:59 Intake Total 1050 / 1050 20090 480 / 2490 Output Total 300 / 300 950 / 950 Balance 750 / 750 1060 / 1540 480 / 1540 Weight 97 kg 95.1 kg Intake: IV 1050 / 1050 2009 Oral 480 / 480 Output: Urine 300 / 300 950 / 950 Other: Urine Color Yellow Straw Urine Appearance Clear Cloudy Urine Odor Normal None Voiding Methods Urinal Toilet Data Completed and Pending Completed studies during hospitalization [Text1]: FINDINGS: Brain: Murillo-white matter differentiation is normal. There is no mass effect or midline shift. There is no intra-axial hemorrhage. There are mild confluent and patchy foci of periventricular and subcortical white matter hypodensities which might reflect chronic microvascular ischemic disease. There is parenchymal volume loss with compensatory dilatation of ventricles, sulci and basilar cisterns. There is no extra-axial fluid collection. Cerebral ventricles: No ventriculomegaly. Bones/joints: Unremarkable. No acute fracture. Paranasal sinuses: Visualized sinuses are unremarkable. No fluid levels. Mastoid air cells: Visualized mastoid air cells are well aerated. Soft tissues: Unremarkable. IMPRESSION: No acute intracranial abnormality. Exam(s) PROCEDURE INFORMATION: Exam: XR Chest, 1 View Exam date and time: 02/17/2020 3:31 PM Age: 84 years old Clinical indication: Other: Dizziness TECHNIQUE: Imaging protocol: XR of the chest Views: 1 view. COMPARISON: No relevant prior studies available. FINDINGS: Lungs: Unremarkable. No consolidation. Pleural space: Unremarkable. No pleural effusion. No pneumothorax. Heart/Mediastinum: There is a hiatal hernia. Vasculature: Aorta is calcified and tortuous. Bones/joints: Unremarkable. IMPRESSION: No acute pulmonary process. Labs on day of discharge: Labs from last 24 hours 02/18/20 02/18/20 02/17/20 09:05 09:05 19:49 WBC Cancelled RBC Cancelled Hgb Cancelled Hct Cancelled MCV Cancelled MCH Cancelled MCHC Cancelled RDW Cancelled Plt Count Cancelled MPV Cancelled Immature Gran % Cancelled Neutrophils % Cancelled Band Neutrophils % Cancelled Lymphocytes % Cancelled Atypical Lymphs % Cancelled Monocytes % Cancelled Eosinophils % Cancelled Basophils % Cancelled Metamyelocytes % Cancelled Myelocytes % Cancelled Promyelocytes % Cancelled Other Cells % Cancelled Nucleated RBC % Cancelled Absolute Neutrophils Cancelled Absolute Lymphocytes Cancelled Absolute Monocytes Cancelled Absolute Eosinophils Cancelled Absolute Basophils Cancelled RBC Morphology Cancelled Polychromasia Cancelled Hypochromasia Cancelled Poikilocytosis Cancelled Basophilic Stippling Cancelled Anisocytosis Cancelled Microcytosis Cancelled Macrocytosis Cancelled Spherocytes Cancelled Tear Drop Cells Cancelled Ovalocytes Cancelled Stomatocytes Cancelled Co[place] Bodies Cancelled Alisa Cells/Echinocytes Cancelled Acanthocytes (Spur) Cancelled Schistocytes Cancelled PT INR APTT Sodium Cancelled Potassium Cancelled Chloride Cancelled Carbon Dioxide Cancelled Anion Gap Cancelled BUN Cancelled Creatinine Cancelled Estimated GFR/1.73 m2 Cancelled Glucose Cancelled Calcium Cancelled Magnesium Total Bilirubin AST ALT Alkaline Phosphatase Troponin I Total Protein Albumin TSH Urine Color Urine Clarity Urine pH Ur Specific [place] Urine Protein Urine Ketones Urine Blood Urine Nitrite Urine Bilirubin Urine Urobilinogen Ur Leukocyte Esterase Urine RBC Urine WBC Ur Epithelial Cells Urine Crystals Urine Bacteria Urine Casts Urine Mucus Ur Culture Indicated? Urine Glucose SARS-CoV-2 (PCR) Pending Nasopharyn COVID-19 PCR Pending Ref Test Perform Site Pending 02/17/20 02/17/20 02/17/20 18:00 17:33 15:00 WBC RBC Hgb Hct MCV MCH MCHC RDW Plt Count MPV Immature Gran % Neutrophils % Band Neutrophils % Lymphocytes % Atypical Lymphs % Monocytes % Eosinophils % Basophils % Metamyelocytes % Myelocytes % Promyelocytes % Other Cells % Nucleated RBC % Absolute Neutrophils Absolute Lymphocytes Absolute Monocytes Absolute Eosinophils Absolute Basophils RBC Morphology Polychromasia Hypochromasia Poikilocytosis Basophilic Stippling Anisocytosis Microcytosis Macrocytosis Spherocytes Tear Drop Cells Ovalocytes Stomatocytes [place] Bodies Alisa Cells/Echinocytes Acanthocytes (Spur) Schistocytes PT 10.7 INR 1.1 APTT 22.8 Sodium Potassium Chloride Carbon Dioxide Anion Gap BUN Creatinine Estimated GFR/1.73 m2 Glucose Calcium Magnesium Total Bilirubin AST ALT Alkaline Phosphatase Troponin I < 0.05 Total Protein Albumin TSH Urine Color Yellow Urine Clarity Cloudy Urine pH 7.0 Ur Specific [place] 1.025 Urine Protein Negative Urine Ketones 40 H Urine Blood Trace-intact H Urine Nitrite Positive H Urine Bilirubin Negative Urine Urobilinogen 0.2 Ur Leukocyte Esterase Moderate H Urine RBC 0-2 Urine WBC 10-20 H Ur Epithelial Cells Rare Urine Crystals Negative Urine Bacteria Many Urine Casts 0-2 hyaline Urine Mucus Negative Ur Culture Indicated? Yes Urine Glucose Negative SARS-CoV-2 (PCR) Nasopharyn COVID-19 PCR Ref Test Perform Site 02/17/20 02/17/20 15:00 15:00 WBC 7.96 RBC 4.62 Hgb 13.5 Hct 42.0 MCV 90.9 MCH 29.2 MCHC 32.1 RDW 13.0 Plt Count 178 MPV 9.5 Immature Gran % 0.5 Neutrophils % 85.0 Band Neutrophils % Lymphocytes % 8.2 Atypical Lymphs % Monocytes % 5.4 Eosinophils % 0.6 Basophils % 0.3 Metamyelocytes % Myelocytes % Promyelocytes % Other Cells % Nucleated RBC % 0 Absolute Neutrophils 6.77 H Absolute Lymphocytes 0.65 L Absolute Monocytes 0.43 Absolute Eosinophils 0.05 Absolute Basophils 0.02 RBC Morphology Polychromasia Hypochromasia Poikilocytosis Basophilic Stippling Anisocytosis Microcytosis Macrocytosis Spherocytes Tear Drop Cells Ovalocytes Stomatocytes [place] Bodies Spencer Cells/Echinocytes Acanthocytes (Spur) Schistocytes PT INR APTT Sodium 143 Potassium 4.1 Chloride 108 H Carbon Dioxide 26.9 Anion Gap 8.1 BUN 22 H Creatinine 1.25 Estimated GFR/1.73 m2 55.30 Glucose 138 H Calcium 8.7 Magnesium 1.9 Total Bilirubin 0.6 AST 17 ALT 19 Alkaline Phosphatase 62 Troponin I < 0.05 Total Protein 6.3 L Albumin 3.5 TSH 2.41 Urine Color Urine Clarity Urine pH Ur Specific [place] Urine Protein Urine Ketones Urine Blood Urine Nitrite Urine Bilirubin Urine Urobilinogen Ur Leukocyte Esterase Urine RBC Urine WBC Ur Epithelial Cells Urine Crystals Urine Bacteria Urine Casts Urine Mucus Ur Culture Indicated? Urine Glucose SARS-CoV-2 (PCR) Nasopharyn COVID-19 PCR Ref Test Perform Site Preliminary micro results at discharge 02/17/20 17:33 Urine Culture - Preliminary Urine - Reflex from Ua Gram Positive [facility] Medical History BPH (benign prostatic hyperplasia) GERD (gastroesophageal reflux disease) Postoperative urinary retention Surgical History History of hernia repair History of laminectomy History of tonsillectomy Social History Smoking/Tobacco Use Status: Never Smoking risk assessment performed?: Yes Alcohol Intake: current Alcohol Intake frequency: a few times a month Alcohol type: wine Drug use: Never Do you feel safe at home: Yes Do you feel safe in your relationship?: Yes
--- NOTE | 2020-02-18 16:16 | PDOC.CMDIS ---
- If Service Date Differs Date of service: 02/18/20 Time of Service: 16:16 LACE Index Scoring Tool - Questions: Length of Stay (in days): 1 Acuity (Admit via E.D.?): Yes E.D. Visits: 2 - Answers: Total Score: 6 Risk of Readmission: Low Risk Care Management Discharge Reason for Hospitalization: Vertigo and Urinary Tract Infection. Discharge Plan: Herrera is discharged home with no new services. He will follow up with is PCP, urogolist, and discharge plan of care as instructed. His , Brandie, is driving him home via private vehicle. Patient/Family Education Needs: Discharge instructions, limitations and follow up plan of care including Ask Me Three and self management.
[2020-02-18 22:37] LABS: COVID-19 RT-PCR UVMMC Result Negative (Negative)
== END 2020-02-18 15:28 | disposition home or self-care (01) ==
LOC: ER 19:01 → MS 20:05
PROVIDERS: Physician Assistant; Admitting Provider Family Medicine; Emergency Provider Registered Nurse Emergency; PCP Internal Medicine; Visit Provider Family Medicine
DX: R42 Dizziness and giddiness (principal); N39.0 Urinary tract infection, site not specified; H55.00 Unspecified nystagmus; K21.9 Gastro-esophageal reflux disease without esophagitis; N40.1 Benign prostatic hyperplasia with lower urinary tract symptoms; R33.9 Retention of urine, unspecified; M47.816 Spondylosis without myelopathy or radiculopathy, lumbar region; R11.0 Nausea
CPT/HCPCS: 36415; 80048; 80053; 87077; 93005; 96361; 96365; 97112; 97161; 99217; 99219; 99285; U0003; 70450; 71045; 81003; 81015; 83735; 84443; 84484; 85025; 85610; 85730; 87086; 87186; 93010; G0378; J0696

== ENCOUNTER 2023-07-02 16:12 | Emergency (ER) | payer MEDICARE, BC, SELFPAY ==
[2023-07-02] VITALS (43 sets, daily range): BP systolic 109–151; BP diastolic 72–106; PULSE 63–153; RESP 9–25; TEMP 36.3; O2SAT 94–99
--- NOTE | 2023-07-02 16:00 | RT.EKG_ITS ---
APPROVED REPORT Exam: Resting ECG Reason for Exam: chest pain Patient Location: E HR:80 bpm ECG Measurements Heart Rate 80 AXIS MD 212 P 21 QRSd 95 QRS -54 QT 377 T 3 QTc 435 Conclusion Sinus rhythm...normal P axis, V-rate 60- 99 Borderline prolonged MD interval...MD >212, V-rate 50- 90 Left anterior fascicular block...axis(240,-40), init forces inf Narrow complex normal sinus rhythm at a rate of 80. Left axis deviation. No signs of LVH based on v oltage criteria in aVL. T wave flattening in aVF. First-degree AV block. QTc within normal limits. 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 T wave flattening in aVF is persistent. 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
--- NOTE | 2023-07-02 16:53 | ED.GENADUL_ITS ---
Discharge Plan Disposition Patient Disposition: Home Condition: Stable Discharge Details Clinical Impression: Shortness of breath Primary Care Provider: DAYAN DUMONT ED Provider: Kath Brown Home Meds and New Rx's Prescriptions: Continued cholecalciferol (vitamin D3) 50 mcg (2,000 unit) capsule 50 mcg PO DAILY aspirin 325 mg Tablet 324 mg PO DAILY famotidine [Pepcid] 20 mg Tablet 20 mg PO DAILY Discharge Instructions Instructions: Dyspnea (ED) Additional Instructions: Keep your scheduled appointments next week with your primary care provider and for your stress test Return here sooner for new or worsening symptoms Your labs and imaging showed no explanation to account for your symptoms. Referrals: DAYAN DUMONT [Primary Care Provider] - Discharge Data Discharge Date/Time-TO BE ENTERED AT DEPARTURE: 07/02/23 20:24 HPI <Elaine Ray NP - Last Filed: 07/05/23 16:01> General Mode of arrival: ambulatory . Date/Time Provider Initiated Documentation: 07/02/23 16:33 . Limitations to Documentation: no limitations . Information obtained by: patient, RN notes reviewed and old records reviewed . HPI Narrative: 87-year-old male presents to the ER with a chief complaint of shortness of breath with exertion x 3 weeks and weakness for 3 weeks after being treated with antibiotics for some dental work. He also notes that with his primary care provider who is through [facility] that he has had some recent EKG changes and scheduled for a nuclear stress test on 06 July after hearing his symptoms per his PCP he was referred to the ER for further workup. He denies any chest pain currently denies any abdominal pain denies any diarrhea. Denies any shortness of breath only with exertion. Past medical history includes BPH GERD. He is a non-smoker. Related Data Home Medications Medication Instructions Recorded Confirmed cholecalciferol (vitamin D3) 50 50 mcg PO DAILY 10/11/19 07/02/23 mcg (2,000 unit) capsule aspirin 325 mg tablet 324 mg PO DAILY 02/17/20 07/02/23 famotidine 20 mg tablet (Pepcid) 20 mg PO DAILY 02/17/20 07/02/23 Allergies Allergy/AdvReac Type Severity Reaction Status Date / Time codeine Allergy Mild Nausea Unverified 07/02/23 16:21 latex Allergy Mild Skin Rash Unverified 07/02/23 16:21 norbert Allergy Itching Unverified 07/02/23 16:21 General Stated Complaint: SOB GURU: 3 Review of Systems <Elaine Ray, NP - Last Filed: 07/05/23 16:01> All systems reviewed & are unremarkable except as noted in HPI and below Constitutional Constitutional: Reports as per HPI and Reports weakness Cardiovascular Cardiovascular: Reports dyspnea on exertion Respiratory Respiratory: Reports dyspnea on exertion Gastrointestinal Gastrointestinal: Denies abdominal pain Neurologic Neurologic: Reports weakness Exam <Elainejass Ray NP - Last Filed: 07/05/23 16:01> Narrative Exam Narrative: Constitutional: Alert and oriented x3. Appears stated age. Normal body habitus. Head: Normocephalic, no trauma. Eyes: Pupils PERRL, Red reflex noted, EOM's intact. Eyelids symmetrical without lesions, discharge, or swelling. Chest: RRR, Normal S1, S2, distal pulses intact. Resp: Lungs clear to auscultation bilaterally, no wheezes, rales, or rhonchi. Abdomen: Soft, non-distended, Normoactive bowel sounds all 4 quads. Musculoskeletal: Normal gait, Moves all 4 extremities without difficulty. Skin: No suspicious rashes or lesions. Capillary refill less than 2 sec. Neurologic: Cranial nerves II-XII intact. Alert and oriented x 3. Motor: No deficits noted. Sensory: Intact bilaterally all 4 extremities. Hematologic/Lymphatic: No ecchymosis, no lymphadenopathy. Course <Elaine Ray NP - Last Filed: 07/05/23 16:01> Vital Signs Vital signs: Vital Signs Pulse 88 07/02/23 16:16 Respiratory Rate 20 07/02/23 16:16 Blood Pressure 150/78 H 07/02/23 16:16 Pulse Oximetry 96 07/02/23 16:16 Temperature 36.3 C L 07/02/23 16:26 Temperature Source Skin 07/02/23 16:26 Pulse 88 07/02/23 16:26 Respiratory Rate 20 07/02/23 16:26 Respiratory Effort Short of Breath 07/02/23 16:26 Blood Pressure 150/78 H 07/02/23 16:26 Pulse Oximetry 96 07/02/23 16:26 Oxygen Delivery Method Room Air 07/02/23 16:26 Oxygen Flow Rate 0 07/02/23 16:26 Pain Level 0 07/02/23 16:26 Medical Decision Making <Elaine Ray NP - Last Filed: 07/05/23 16:01> 87-year-old male presents to the ER with a chief complaint of shortness of breath with exertion x 3 weeks and weakness for 3 weeks after being treated with antibiotics for some dental work. He also notes that with his primary care provider who is through [facility] that he has had some recent EKG changes and scheduled for a nuclear stress test on 06 July after hearing his symptoms per his PCP he was referred to the ER for further workup. He denies any chest pain currently denies any abdominal pain denies any diarrhea. Denies any shortness of breath only with exertion. Past medical history includes BPH GERD. He is a non-smoker. Cardiac workup ordered including serial troponins, chest x-ray EKG was reviewed by Dr. Chau ER attending, please see his official report old EKG from 2020 available for review.No STEMI, First degree AV block. Care is to be handed off to oncoming provider Kath Brown NP pending serial troponin. Patient case and details discussed with her she verbalized shea ledesma. This text was generated using [employer] dictation system, please disregard any oddities of phrase or misspellings. 1730 report and care of patient has been received from LINNEA Virgen. Tami ent is resting quietly on the monitor in normal sinus rhythm voicing no complaints he is awaiting a repeat troponin at 1930 1900 dinner is given and he tolerated well. Able to take good p.o. he has r emained asymptomatic and hemodynamically stable while being monitored in the department 2014-second troponin is resulted and remains negative at less than 50. He is asymptomatic and stable for discharge to home he will keep follow-up appointment with his primary care provider on Wednesday and stress test on Wednesday he will return here sooner for new or worsening symptoms Quality:SDOH Health Related Social Needs: No Data to Display <Kath Brown NP - Last Filed: 07/02/23 20:17> 87-year-old male presents to the ER with a chief complaint of shortness of breath with exertion x 3 weeks and weakness for 3 weeks after being treated with antibiotics for some dental work. He also notes that with his primary care provider who is through [facility] that he has had some recent EKG changes and scheduled for a nuclear stress test on 06 July after hearing his symptoms per his PCP he was referred to the ER for further workup. He denies any chest pain currently denies any abdominal pain denies any diarrhea. Denies any shortness of breath only with exertion. Past medical history includes BPH GERD. He is a non-smoker. EKG was reviewed by Dr. Chau ER attending, please see his official report old EKG from 2020 available for review.No STEMI, First degree AV block. 1729 report and care of patient has been received from LINNEA Virgen. Patient is resting quietly on the monitor in normal sinus rhythm voicing no complaints he is awaiting a repeat troponin at 1930 1900 dinner is given and he tolerated well. Able to take good p.o. he has remained asymptomatic and hemodynamically stable while being monitored in the department 2015-second troponin is resulted and remains negative at less than 50. He is asymptomatic and stable for discharge to home he will keep follow-up appointment with his primary care provider on Wednesday and stress test on Wednesday he will return here sooner for new or worsening symptoms Medical Records Medical records reviewed: Yes I reviewed the patient's medical records. Lab Data Lab results reviewed: Yes I reviewed the patient's lab results. Labs: Laboratory Tests Range/Units 07/02/23 07/02/23 16:35 19:30 WBC (4.4-10.8) 10^3/uL 6.58 RBC (4.36-5.78) 10^6/uL 4.94 Hgb (13.5-17.5) g/dL 14.1 Hct (40.0-50.0) % 43.9 MCV (80-95) fL 89 MCH (27.0-33.0) pg 28.5 MCHC (32.0-36.0) % 32.1 RDW (11.8-14.1) % 13.4 Plt Count (130-400) 10^3/uL 246 MPV (8.0-11.0) fL 9.7 Immature Gran % % 0.5 Neutrophils % % 66.3 Lymphocytes % % 18.4 Monocytes % % 10.9 Eosinophils % % 3.0 Basophils % % 0.9 Nucleated RBC % (0.0-0.3) % 0.0 Absolute Neutrophils (1.2-6.7) 10^3/uL 4.36 Absolute Lymphocytes (1.2-3.4) 10^3/uL 1.21 Absolute Monocytes (0.1-0.8) 10^3/uL 0.72 Absolute Eosinophils (0.0-0.7) 10^3/uL 0.20 Absolute Basophils (0.0-0.2) 10^3/uL 0.06 PT (9.1-11.1) sec 10.9 INR (0.9-1.1) 1.1 APTT (23.6-32.8) sec 25.8 Sodium (136-145) mmol/L 142 Potassium (3.5-5.1) mmol/L 4.1 Chloride (98-107) mmol/L 105 Carbon Dioxide (21.0-32.0) mmol/L 29.5 Anion Gap (3-11) mmol/L 7.5 BUN (7-18) mg/dL 23 H Creatinine (0.70-1.30) mg/dL 1.2 Est GFR (CKD-EPI 2020) (mL/min/1.73m2) 59.26 Glucose (74-106) mg/dL 113 H Calcium (8.5-10.1) mg/dL 9.0 Magnesium (1.8-2.4) mg/dL 2.1 Total Bilirubin (0.2-1.0) mg/dL 0.5 AST (15-37) U/L 10 L ALT (16-63) U/L 16 Alkaline Phosphatase (46-116) U/L 61 Troponin I (< or =60) ng/L < 50 < 50 NT-Pro-B Natriuret Pep (<300) pg/mL 136 Total Protein (6.4-8.2) g/dL 6.5 Albumin (3.4-5.0) g/dL 3.5 PFSH <Elaine Ray NP - Last Filed: 07/05/23 16:01> All Active Problems (Updated 07/02/23 @ 20:16 by Kath Brown NP) Shortness of breath (Acute) Dizziness (Acute) History of lumbar laminectomy (Acute) Obstructive uropathy (Acute) Acute kidney injury (Acute) Postoperative urinary retention (Acute) Medical History Acute UTI BPH (benign prostatic hyperplasia) GERD (gastroesophageal reflux disease) Surgical History History of laminectomy History of tonsillectomy History of hernia repair Social History Smoking/Tobacco Use Status: Never Smoking risk assessment performed?: Yes Alcohol Intake: current Alcohol Intake frequency: a few times a month Alcohol type: wine Drug use: Never Do you feel safe at home: Yes Do you feel safe in your relationship?: Yes Sign Out <Elaine Ray NP - Last Filed: 07/05/23 16:01> Sign Out Data: Sign Out Comment: Pending cardiac workup and serial troponins sent here for weakness x 3 weeks and shortness of breath with exertion. Currently denies any active chest pain shortness of breath only occurs with exertion. Sent here by PCP. Last updated by Elaine Ray NP at 07/02/23 17:25
[2023-07-02 16:54] LABS: Abs Immature Grans 0.03 10^3/uL (0.0-0.06); Absolute Basophil Count 0.06 10^3/uL (0.0-0.2); Absolute Lymphocyte Count 1.21 10^3/uL (1.2-3.4); Absolute Monocyte Count 0.72 10^3/uL (0.1-0.8); Absolute Neutrophil Count 4.36 10^3/uL (1.2-6.7); Basophils % 0.9 %; HCT 43.9 % (40.0-50.0); HGB 14.1 g/dL (13.5-17.5); Immature Grans % 0.5 %; Lymphocytes % 18.4 %; MCH 28.5 pg (27.0-33.0); MCHC 32.1 % (32.0-36.0); MCV 89 fL (80-95); MPV 9.7 fL (8.0-11.0); Monocytes % 10.9 %; Neutrophils % 66.3 %; Platelet Count 246 10^3/uL (130-400); RBC 4.94 10^6/uL (4.36-5.78); RDW 13.4 % (11.8-14.1); RDW-SD 43.5 fL; WBC 6.58 10^3/uL (4.4-10.8)
[2023-07-02 17:03] LABS: INR 1.1 (0.9-1.1); PTT Activated 25.8 sec (23.6-32.8); Prothrombin Time 10.9 sec (9.1-11.1)
[2023-07-02 17:12] LABS: ALT 16 U/L (16-63); AST 10 U/L (15-37); Albumin 3.5 g/dL (3.4-5.0); Alkaline Phosphatase 61 U/L (46-116); Anion Gap 7.5 mmol/L (3-11); BUN 23 mg/dL (7-18); Bilirubin, Total 0.5 mg/dL (0.2-1.0); CO2 29.5 mmol/L (21.0-32.0); CREATININE 1.2 mg/dL (0.70-1.30); Chloride 105 mmol/L (98-107); Estimated GFR 59.26 (mL/min/1.73m2); Glucose 113 mg/dL (74-106); Magnesium 2.1 mg/dL (1.8-2.4); Potassium 4.1 mmol/L (3.5-5.1); Sodium 142 mmol/L (136-145); Total Protein 6.5 g/dL (6.4-8.2); Troponin I < 50 ng/L (< or =60)
[2023-07-02 17:36] LABS: NT-proBNP 136 pg/mL (<300)
[2023-07-02 19:59] LABS: Troponin I < 50 ng/L (< or =60)
== END 2023-07-02 20:24 | disposition home or self-care (01) ==
PROVIDERS: Registered Nurse Emergency; Emergency Provider Nurse Practitioner Acute Care; PCP Internal Medicine
DX: R06.02 Shortness of breath (principal); R53.1 Weakness
CPT/HCPCS: 36415; 80053; 93005; 99283; 83735; 83880; 84484; 85025; 85610; 85730; 93010

== ENCOUNTER → 2023-10-13 10:56 | Outpatient (BNVA) | payer MEDICARE, BC, SELFPAY | PROVIDERS: PCP Internal Medicine; Visit Provider Nurse Practitioner Gerontology | DX: R33.8 Other retention of urine (principal); N99.89 Other postprocedural complications and disorders of genitourinary system | CPT/HCPCS: 51798; 99214 ==

== ENCOUNTER → 2024-10-11 09:58 | Outpatient (BNVA) | payer MEDICARE, BC, SELFPAY | PROVIDERS: PCP Internal Medicine; Referring Provider Internal Medicine; Visit Provider Nurse Practitioner Gerontology | DX: N40.0 Benign prostatic hyperplasia without lower urinary tract symptoms (principal); N99.89 Other postprocedural complications and disorders of genitourinary system; R33.8 Other retention of urine | CPT/HCPCS: 99213; 51798 ==

== ENCOUNTER → 2025-01-17 09:28 | Outpatient (BNVA) | payer MEDICARE, BC, SELFPAY | PROVIDERS: PCP Internal Medicine; Referring Provider Internal Medicine; Visit Provider Nurse Practitioner Gerontology | DX: N99.89 Other postprocedural complications and disorders of genitourinary system (principal); R33.8 Other retention of urine; N40.0 Benign prostatic hyperplasia without lower urinary tract symptoms; R39.9 Unspecified symptoms and signs involving the genitourinary system | CPT/HCPCS: 99214; 51798 ==